=== PATIENT | male | born 1980 | race Two or more races ===

== ENCOUNTER 2020-09-25 07:49 | Day surgery (SDC) | payer BC ==
[~2020-09-25] VITALS: Ht 172.7 cm; Wt 86.2 kg
[~2020-09-25 07:49] MED LIST: LISI20TA28 PO
[2020-09-25] MEDS ORDERED: ceFAZolin 1GM/50ML 100 ML IV ONE (08:39)
[2020-09-25] MEDS ORDERED: EPINEPHrine HCL 1 MG/1 ML AMP ONE (09:00)
[2020-09-25] MEDS ORDERED: BUPIVACAINE HCL 50 ML ONE (09:01)
[2020-09-25] MEDS ORDERED: PHENYLEPHRINE HCL 10 MG/ML VL IV ONE (09:15)
[2020-09-25] MEDS ORDERED: SUCCINYLCHOLINE CHLORIDE 20 MG/ML 10ML VIAL IV ONE (09:15)
[2020-09-25] MEDS ORDERED: fentaNYL CITRATE 5 ML ONE ×2 (09:24→10:46)
[2020-09-25] MEDS ORDERED: MIDAZOLAM HCL 1MG/1ML-2 ML VIAL ONE (09:24)
[2020-09-25] MEDS ORDERED: fentaNYL CITRATE 100 MCG/2 ML VL ONE (09:24)
[2020-09-25] MEDS ORDERED: MEPERIDINE HCL (50 MG/ML) 1 ML VIAL ONE (09:24)
[2020-09-25] MEDS ORDERED: HYDROmorphone HCL 2 MG/ML VL IV PRN (10:00)
[2020-09-25] MEDS ORDERED: LABETALOL HCL 5 MG/ML 4ML SYRINGE IV PRN (10:00)
[2020-09-25] MEDS ORDERED: ONDANSETRON HCL 4 MG/2 ML VIAL IV PRN (10:00)
[2020-09-25] MEDS ORDERED: ePHEDrine SULFATE 50 MG/ML AMP IV PRN (10:00)
[2020-09-25] MEDS ORDERED: KETOROLAC TROMETH 30 MG/ML 1ML VIAL IV ONE (10:00)
[2020-09-25] MEDS ORDERED: MIDAZOLAM HCL 1MG/1ML-2 ML VIAL IV PRN (10:00)
[2020-09-25] MEDS ORDERED: MORPHINE SULFATE 4 MG/ML SYR/VIAL IV PRN (10:00)
[2020-09-25] MEDS ORDERED: PROPOFOL 10 MG/ML 20 ML IV ONE (10:09)
[2020-09-25] MEDS ORDERED: DexAMETHasone SOD PHOS 10MG/1ML VIAL INJ ONE (10:09)
[2020-09-25] MEDS ORDERED: NEOMYCIN-BACITRACIN-POLYM 15GM TOP OINT TOP ONE (10:29)
[2020-09-25 12:55] VITALS: BP 146/55
== END 2020-09-25 13:15 | disposition home or self-care (01) ==
LOC: SUR 07:49
PROVIDERS: ATTEND Orthopaedic Surgery Sports Medicine
DX: S83.511A Sprain of anterior cruciate ligament of right knee, initial encounter (principal); M23.211 Derangement of anterior horn of medial meniscus due to old tear or injury, right knee; I10 Essential (primary) hypertension; H52.209 Unspecified astigmatism, unspecified eye; Z68.28 Body mass index [BMI] 28.0-28.9, adult; Z20.822 Contact with and (suspected) exposure to COVID-19; X58.XXXA Exposure to other specified factors, initial encounter; Y93.89 Activity, other specified; Y92.89 Other specified places as the place of occurrence of the external cause; Y99.8 Other external cause status
CPT/HCPCS: 29882; 29888; C1713; C9803; J0171; J0330; J0690; J1100; J2175; J2250; J2370; J2405; J2704; J3010; J3490; U0003

== ENCOUNTER 2020-10-03 23:04 | Inpatient (IN) | payer BC ==
[~2020-10-03] VITALS: Ht 172.7 cm; Wt 93.5 kg
[2020-10-03] MEDS ORDERED: MORPHINE SULFATE 4 MG/ML SYR/VIAL IV ONE (23:45)
[2020-10-03] MEDS ORDERED: ONDANSETRON HCL 4 MG/2 ML VIAL IV ONE (23:45)
[2020-10-04 00:12] LABS: Basophils # (auto) 0 10 ^3/uL (0-0.2); Basophils % (auto) 0.4 % (0.0-2.0); Eosinophils # (auto) 0.1 10 ^3/uL (0-0.8); Eosinophils % (auto) 0.7 % (0.0-7.0); Hematocrit 35.9 % (41.0-53.0); Hemoglobin 12.3 g/dL (13.5-17.5); Lymphocytes # (auto) 1.1 10 ^3/uL (0.4-5.4); Mean Corpuscular Hemoglobin 29.3 pg (28.0-32.0); Mean Corpuscular Hgb Conc. 34.3 g/dL (32.0-36.0); Mean Corpuscular Volume 85.2 fL (80.0-100.0); Monocytes # (auto) 1.1 10 ^3/uL (0-1.3); Monocytes % (auto) 8.5 % (0.0-12.0); Neutrophils # (auto) 10.3 10 ^3/uL (1.6-8.6); Neutrophils % (auto) 81.4 % (37.0-80.0); Nucleated Red Blood Cells % 0.1 %; Red Blood Cells 4.21 10^6/uL (4.5-5.90); Red Cell Distribution Width 13.2 % (11.8-14.3); White Blood Cell 12.7 10^3/uL (4.4-10.8)
[2020-10-04 00:34] LABS: Albumin 3.1 g/dL (3.4-5.0); BUN/Creatinine Ratio 12.6; Calcium 8.6 mg/dL (8.5-10.1); Potassium 3.6 mmol/L (3.5-5.1)
[2020-10-04 00:37] LABS: Bilirubin, Total 0.6 mg/dL (0.2-1.0)
[2020-10-04] MEDS ORDERED: MORPHINE SULFATE 10 MG/ML INJ 1ML SDV IV ONE (03:30)
[2020-10-04] MEDS ORDERED: MORPHINE SULFATE 4 MG/ML SYR/VIAL IV ONE (03:30)
[2020-10-04] MEDS ORDERED: MORPHINE SULFATE 4 MG/ML SYR/VIAL ONE (03:39)
[2020-10-04] MEDS ORDERED: MORPHINE SULFATE INJECTION 2 MG/ML SYRG ONE (03:39)
[2020-10-04] MEDS ORDERED: HYDROcodone-ACET 10/325MG TAB PO PRN (06:15)
[2020-10-04] MEDS ORDERED: NITROGLYCERIN 0.4 MG SL TAB SL PRN (06:15)
[2020-10-04] MEDS ORDERED: MORPHINE SULFATE INJECTION 2 MG/ML SYRG IV PRN (06:15)
[2020-10-04] MEDS ORDERED: SODIUM CHLORIDE 0.9% 1,000 ML IV ONE (06:15)
[2020-10-04 08:00] VITALS: BP 119/75
[2020-10-04 09:08] VITALS: BP 119/75
[2020-10-04] MEDS: LISINOPRIL 20 MG TAB PO SCH (10:00)
[2020-10-04 10:59] LABS: INR 1.09 (0.9-1.15); Partial Thromboplastin Time 33.9 sec (23.0-31.2)
[2020-10-04] MEDS ORDERED: ceFAZolin 1GM/50ML 100 ML IV ONE (11:25)
[2020-10-04] MEDS ORDERED: BACITRACIN INJ 50000 UNIT VIAL ONE (12:01)
[2020-10-04] MEDS ORDERED: MORPHINE SULFATE 4 MG/ML SYR/VIAL IV PRN ×2 (12:15→13:30)
[2020-10-04] MEDS ORDERED: ONDANSETRON HCL 4 MG/2 ML VIAL IV PRN ×3 (12:15→13:30)
[2020-10-04] MEDS ORDERED: HYDROmorphone HCL 2 MG/ML VL IV PRN ×2 (12:15→13:30)
[2020-10-04] MEDS ORDERED: KETOROLAC TROMETH 30 MG/ML 1ML VIAL IV ONE ×2 (12:15→13:30)
[2020-10-04] MEDS ORDERED: LABETALOL HCL 5 MG/ML 4ML SYRINGE IV PRN ×2 (12:15→13:30)
[2020-10-04] MEDS ORDERED: MIDAZOLAM HCL 2MG/2ML 2ml VIAL (1mg/ml) IV PRN ×2 (12:15→13:30)
[2020-10-04] MEDS ORDERED: ePHEDrine SULFATE 50 MG/ML AMP IV PRN ×2 (12:15→13:30)
[2020-10-04] MEDS ORDERED: MEPERIDINE HCL (25 MG/ML) 1ML VIAL IV ONE (12:16)
[2020-10-04] MEDS ORDERED: PHENYLEPHRINE HCL 10 MG/ML VL IV ONE (12:16)
[2020-10-04] MEDS ORDERED: fentaNYL CITRATE 100 MCG/2 ML VL ONE (12:19)
[2020-10-04] MEDS ORDERED: MEPERIDINE HCL (25 MG/ML) 1ML VIAL ONE (12:19)
[2020-10-04] MEDS ORDERED: MIDAZOLAM HCL 2MG/2ML 2ml VIAL (1mg/ml) ONE (12:19)
[2020-10-04] MEDS: ceFAZolin 1GM/50ML 50 ML IV SCH ×2 (12:30→17:59)
[2020-10-04] MEDS ORDERED: HYDROcodone-ACET 5/325MG TAB PO PRN (12:30)
[2020-10-04] MEDS ORDERED: LACTATED RINGER'S 1,000 ML IV SCH (12:30)
[2020-10-04] MEDS ORDERED: DexAMETHasone SOD PHOS 10MG/1ML VIAL INJ ONE (12:34)
[2020-10-04] MEDS ORDERED: PROPOFOL 10 MG/ML 20 ML IV ONE (12:36)
[2020-10-04] MEDS ORDERED: BUPIVACAINE HCL 50 ML ONE (12:53)
[2020-10-04] MEDS: HYDROmorphone HCL 2 MG/ML VL IV PRN ×2 (15:51→20:39)
[2020-10-04 16:51] VITALS: BP 143/76
[2020-10-04] MEDS: KETOROLAC TROMETH 30 MG/ML 1ML VIAL IV SCH (17:55)
[2020-10-04 20:05] VITALS: BP 134/94
[2020-10-04 22:00] VITALS: BP 134/94
[2020-10-04] MEDS: DOCUSATE SOD 100 MG CAP PO SCH (22:00)
[2020-10-04] MEDS: ASPirin-EC 81 mg tab PO SCH (22:25)
[2020-10-05] MEDS: KETOROLAC TROMETH 30 MG/ML 1ML VIAL IV SCH ×4 (00:22→17:52)
[2020-10-05] MEDS: ceFAZolin 1GM/50ML 50 ML IV SCH (00:23)
[2020-10-05] MEDS: HYDROmorphone HCL 2 MG/ML VL IV PRN ×3 (04:28→20:23)
[2020-10-05 05:00] VITALS: BP 141/81
[2020-10-05] MEDS ORDERED: ACETAMINOPHEN 325 MG TAB PO PRN ×2 (06:15→14:00)
[2020-10-05] MEDS ORDERED: CLINDAMYCIN 900MG IV 50 ML IV SCH ×2 (06:30→09:00)
[2020-10-05] MEDS ORDERED: VANCOMYCIN PER PHARMACY 0 MG IV SCH (06:30)
[2020-10-05 06:32] LABS: Basophils # (auto) 0.1 10 ^3/uL (0-0.2); Basophils % (auto) 0.5 % (0.0-2.0); Eosinophils # (auto) 0 10 ^3/uL (0-0.8); Eosinophils % (auto) 0.1 % (0.0-7.0); Hematocrit 31.6 % (41.0-53.0); Hemoglobin 11.6 g/dL (13.5-17.5); Lymphocytes # (auto) 0.6 10 ^3/uL (0.4-5.4); Lymphocytes % (auto) 5.5 % (10.0-50.0); Mean Corpuscular Hemoglobin 30.6 pg (28.0-32.0); Mean Corpuscular Volume 83.8 fL (80.0-100.0); Monocytes # (auto) 0.6 10 ^3/uL (0-1.3); Monocytes % (auto) 4.9 % (0.0-12.0); Neutrophils # (auto) 10.1 10 ^3/uL (1.6-8.6); Red Blood Cells 3.78 10^6/uL (4.5-5.90); Red Cell Distribution Width 13.3 % (11.8-14.3); White Blood Cell 11.4 10^3/uL (4.4-10.8)
[2020-10-05 06:42] LABS: Calcium 8.5 mg/dL (8.5-10.1); Potassium 3.8 mmol/L (3.5-5.1)
[2020-10-05 06:44] LABS: BUN/Creatinine Ratio 19.3
[2020-10-05 06:52] LABS: Mean Corpuscular Hgb Conc. 36.5 g/dL (32.0-36.0)
[2020-10-05] MEDS ORDERED: VANCOMYCIN 1GM/250ML 250 ML IV ONE (08:00)
[2020-10-05 09:00] VITALS: BP 119/80
[2020-10-05] MEDS ORDERED: cefTRIAXone 1GM/50ML D5W 50 ML IV SCH (09:00)
[2020-10-05] MEDS: LISINOPRIL 20 MG TAB PO SCH (09:26)
[2020-10-05] MEDS: ASPirin-EC 81 mg tab PO SCH ×2 (09:26→21:51)
[2020-10-05] MEDS: DOCUSATE SOD 100 MG CAP PO SCH ×2 (09:27→21:52)
[2020-10-05 13:00] VITALS: BP 144/72
[2020-10-05] MEDS ORDERED: PIPERACILLIN-TAZOB 3.375GM 100 ML IV SCH (13:00)
[2020-10-05] MEDS: PIPERACILLIN-TAZOB 3.375GM 100 ML IV SCH ×2 (13:29→20:00)
[2020-10-05 17:00] VITALS: BP 146/77
[2020-10-05] MEDS: VANCOMYCIN 1GM/250ML 250 ML IV SCH (17:53)
[2020-10-05 21:49] VITALS: BP 110/58
[2020-10-06] MEDS: KETOROLAC TROMETH 30 MG/ML 1ML VIAL IV SCH ×5 (00:36→23:56)
[2020-10-06] MEDS: PIPERACILLIN-TAZOB 3.375GM 100 ML IV SCH ×4 (01:56→20:24)
[2020-10-06 04:34] VITALS: BP 115/78
[2020-10-06] MEDS: VANCOMYCIN 1GM/250ML 250 ML IV SCH ×3 (05:02→23:55)
[2020-10-06 05:14] LABS: Basophils # (auto) 0 10 ^3/uL (0-0.2); Basophils % (auto) 1.1 % (0.0-2.0); Eosinophils # (auto) 0 10 ^3/uL (0-0.8); Eosinophils % (auto) 1.1 % (0.0-7.0); Hematocrit 32.9 % (41.0-53.0); Hemoglobin 11.8 g/dL (13.5-17.5); Lymphocytes # (auto) 0.6 10 ^3/uL (0.4-5.4); Lymphocytes % (auto) 14.5 % (10.0-50.0); Mean Corpuscular Hemoglobin 30.3 pg (28.0-32.0); Mean Corpuscular Hgb Conc. 35.9 g/dL (32.0-36.0); Mean Corpuscular Volume 84.5 fL (80.0-100.0); Monocytes # (auto) 0.4 10 ^3/uL (0-1.3); Monocytes % (auto) 10.3 % (0.0-12.0); Neutrophils # (auto) 3.2 10 ^3/uL (1.6-8.6); Nucleated Red Blood Cells % 0.1 %; Red Blood Cells 3.89 10^6/uL (4.5-5.90); Red Cell Distribution Width 13.5 % (11.8-14.3); White Blood Cell 4.3 10^3/uL (4.4-10.8)
[2020-10-06 05:48] LABS: Potassium 4.1 mmol/L (3.5-5.1)
[2020-10-06 05:50] LABS: BUN/Creatinine Ratio 14.8
[2020-10-06 09:00] VITALS: BP 123/76
[2020-10-06] MEDS: ASPirin-EC 81 mg tab PO SCH ×2 (09:44→22:09)
[2020-10-06] MEDS: LISINOPRIL 20 MG TAB PO SCH (09:45)
[2020-10-06] MEDS: HYDROmorphone HCL 2 MG/ML VL IV PRN ×4 (09:45→23:04)
[2020-10-06] MEDS: DOCUSATE SOD 100 MG CAP PO SCH ×2 (09:50→22:09)
[2020-10-06 11:34] LABS: Hematocrit 32.5 % (41.0-53.0); Hemoglobin 11.6 g/dL (13.5-17.5)
[2020-10-06 12:51] VITALS: BP 146/83
[2020-10-06 17:00] VITALS: BP 137/71
[2020-10-06 22:00] VITALS: BP 141/68
[2020-10-07] MEDS: PIPERACILLIN-TAZOB 3.375GM 100 ML IV SCH (02:02)
[2020-10-07 05:00] VITALS: BP 124/71
[2020-10-07] MEDS: KETOROLAC TROMETH 30 MG/ML 1ML VIAL IV SCH (05:48)
[2020-10-07 05:56] LABS: Basophils # (auto) 0.1 10 ^3/uL (0-0.2); Basophils % (auto) 1.1 % (0.0-2.0); Eosinophils # (auto) 0.3 10 ^3/uL (0-0.8); Eosinophils % (auto) 5.5 % (0.0-7.0); Hematocrit 32.7 % (41.0-53.0); Hemoglobin 11.8 g/dL (13.5-17.5); Lymphocytes # (auto) 1.2 10 ^3/uL (0.4-5.4); Lymphocytes % (auto) 20.5 % (10.0-50.0); Mean Corpuscular Hemoglobin 30.6 pg (28.0-32.0); Mean Corpuscular Hgb Conc. 36.2 g/dL (32.0-36.0); Mean Corpuscular Volume 84.5 fL (80.0-100.0); Monocytes # (auto) 0.8 10 ^3/uL (0-1.3); Monocytes % (auto) 12.6 % (0.0-12.0); Neutrophils # (auto) 3.6 10 ^3/uL (1.6-8.6); Neutrophils % (auto) 60.3 % (37.0-80.0); Red Blood Cells 3.87 10^6/uL (4.5-5.90); Red Cell Distribution Width 13.4 % (11.8-14.3)
[2020-10-07 06:12] LABS: Potassium 4.3 mmol/L (3.5-5.1)
[2020-10-07 06:26] LABS: BUN/Creatinine Ratio 14.9; Calcium 8.5 mg/dL (8.5-10.1)
[2020-10-07 07:29] VITALS: BP 123/76
== END 2020-10-07 08:51 | disposition home health service (06) | DRG 908 ==
LOC: ER 23:04 → OVERFLOW 10-04 06:10 → CENTRAL 10-04 07:42
PROVIDERS: ADMIT Orthopaedic Surgery Sports Medicine; ATTEND Orthopaedic Surgery Sports Medicine
PROC: 0Y9F3ZZ Drainage of Right Knee Region, Percutaneous Approach (ICD-10-PCS; principal; 2020-10-04 12:23)
PROC: 0SBC4ZZ Excision of Right Knee Joint, Percutaneous Endoscopic Approach (ICD-10-PCS; 2020-10-04 12:23)
DX: M96.840 Postprocedural hematoma of a musculoskeletal structure following a musculoskeletal system procedure (principal); L03.115 Cellulitis of right lower limb; E44.1 Mild protein-calorie malnutrition; Z20.822 Contact with and (suspected) exposure to COVID-19; F31.9 Bipolar disorder, unspecified; Z83.3 Family history of diabetes mellitus; Z79.899 Other long term (current) drug therapy; Z79.891 Long term (current) use of opiate analgesic; Z79.01 Long term (current) use of anticoagulants; M25.461 Effusion, right knee
CPT/HCPCS: 36415; 73560; 73590; 80048; 80053; 80202; 82565; 85014; 85018; 85025; 85610; 85730; 86850; 86900; 86901; 87040; 87070; 87075; 87081; 87205; 87426; 93971; 96361; 96374; 96375; 97110; 97116; 97163; 97530; G0378; J0690; J0696; J1100; J1885; J2250; J2405; J2543; J2704; J3490

== ENCOUNTER → 2020-10-08 00:31 | Emergency (ER) | payer BC ==
[~2020-10-08] VITALS: Ht 172.7 cm; Wt 86.2 kg
[2020-10-08 00:45] VITALS: BP 145/91
== END | disposition left against medical advice (07) ==
LOC: ER 00:31
DX: M79.605 Pain in left leg (principal); Z53.21 Procedure and treatment not carried out due to patient leaving prior to being seen by health care provider

== ENCOUNTER 2020-12-01 02:05 | Emergency (ER) | payer BC ==
[~2020-12-01] VITALS: Ht 172.7 cm; Wt 83.9 kg
[2020-12-01 03:22] VITALS: BP 180/100
[2020-12-01] MEDS ORDERED: KETOROLAC TROMETH 60MG/2ML VIAL IM ONE (05:45)
== END 2020-12-01 06:37 | disposition home or self-care (01) ==
LOC: ER 02:05
DX: S83.91XA Sprain of unspecified site of right knee, initial encounter (principal); F17.210 Nicotine dependence, cigarettes, uncomplicated; Z79.899 Other long term (current) drug therapy; X58.XXXA Exposure to other specified factors, initial encounter; Y93.89 Activity, other specified; Y92.89 Other specified places as the place of occurrence of the external cause; Y99.8 Other external cause status
CPT/HCPCS: 73562; 96372; 99283; J1885

== ENCOUNTER 2020-12-02 23:29 | Emergency (ER) | payer BC ==
[~2020-12-02] VITALS: Ht 172.7 cm; Wt 83.5 kg
[2020-12-03] MEDS ORDERED: methylPREDNISolone SOD SUCC 125 MG/2 ML VL IM ONE (02:00)
[2020-12-03] MEDS ORDERED: KETOROLAC TROMETH 60MG/2ML VIAL IM ONE (02:00)
[2020-12-03 03:26] VITALS: BP 138/95
== END 2020-12-03 03:32 | disposition home or self-care (01) ==
LOC: ER 23:29
DX: M25.561 Pain in right knee (principal); R22.41 Localized swelling, mass and lump, right lower limb; F17.210 Nicotine dependence, cigarettes, uncomplicated; Z79.899 Other long term (current) drug therapy
CPT/HCPCS: 96372; 99284; J1885; J2930

== ENCOUNTER 2021-02-18 04:30 | Emergency (ER) | payer BC ==
[2021-02-18 06:48] VITALS: BP 171/97
== END 2021-02-18 07:10 | disposition left against medical advice (07) ==
LOC: ER 04:30
DX: M25.562 Pain in left knee (principal); M25.561 Pain in right knee; Z53.21 Procedure and treatment not carried out due to patient leaving prior to being seen by health care provider
CPT/HCPCS: 73562

== ENCOUNTER 2021-02-18 19:48 | Emergency (ER) | payer BC ==
[~2021-02-18] VITALS: Ht 172.7 cm; Wt 87.1 kg
[2021-02-18 23:00] VITALS: BP 169/111
[2021-02-18] MEDS ORDERED: KETOROLAC TROMETH 60MG/2ML VIAL IM ONE (23:45)
[2021-02-18] MEDS ORDERED: methylPREDNISolone SOD SUCC 125 MG/2 ML VL IM ONE (23:45)
== END 2021-02-19 01:24 | disposition home or self-care (01) ==
LOC: ER 19:50
DX: S83.8X1A Sprain of other specified parts of right knee, initial encounter (principal); F17.210 Nicotine dependence, cigarettes, uncomplicated; Z59.00 Homelessness unspecified; X58.XXXA Exposure to other specified factors, initial encounter; Y93.89 Activity, other specified; Y92.89 Other specified places as the place of occurrence of the external cause; Y99.8 Other external cause status
CPT/HCPCS: 29505; 96372; 99284; J1885; J2930

== ENCOUNTER 2024-08-25 03:02 | Inpatient (IN) | payer BC ==
[~2024-08-25] VITALS: Ht 172.7 cm; Wt 96.0 kg
[2024-08-25] VITALS (7 sets, daily range): BP systolic 132–151; BP diastolic 82–94; PULSE 61–77; RESP 12–20; TEMP 98.1–98.2; O2SAT 94–98
[~2024-08-25 03:02] MED LIST changes: -LISI20TA28 PO; +LISI20TA56 PO
--- NOTE | 2024-08-25 03:54 | ED.PDOC ---
GI ASSESSMENT HPI Comments 43 year old male presents to the ED with a chief complaint of blood in stool onset 08/16/24. Patient states he has been experiencing blood in stool with blood clots for the past 2 weeks, blood gets light but does not resolve. Saw PCP yesterday, was sent for lab work. Patient woke up this morning and noticed bleeding worsen as well as periumbilical pain radiates to back, came to ED. Denies chest pain, shortness of breath, diarrhea, nausea, vomiting, dysuria, hematuria. No other symptoms or modifying factors present at this time. Chief Complaint: GI Bleed Time Seen by MD: 03:41 Primary Care Provider: ALEXANDER De La Rosa Notes: Medications, Allergies Allergies: Coded Allergies: NO KNOWN ALLERGIES (Unverified , 09/20/20) Home Meds Reported Medications Lisinopril (Lisinopril) 20 Mg Tab, 20 MG PO DAILY, TAB 09/20/20 Information Source: Patient Mode of Arrival: Ambulatory Timing: Weeks Duration: Since onset Prehospital treatment: None Quality: Sharp Vomitus: None Stool: Blood Streaked Severity: Moderate Recent: None Recent Hx of: None Pain Location: Periumbilical Modifying Factors: Nothing Associated sign and symptoms: Abdominal Pain, Blood in Stool Past Medical History Past Medical History (Other): ADHD Family History Family History: Reviewed,noncontributory to illness, No family hx of Cancer, No family hx of Heart fatuma, No family hx of HTN, No family hx ofKidney fatuma, No family hx of Liver fatuma, No family hx of Lung fatuma, No family hx of Stroke, Family hx of DM Social History Smoker: Cigarettes, Less Than 1 Pack/Day Alcohol: Denies ETOH Use Drugs: Denies Drug Use Lives In: Home Constitutional: denies: chills, diaphoresis, fatigue, fever, malaise, sweats, weakness, others EENTM: denies: blurred vision, double vision, ear bleeding, ear discharge, ear drainage, ear pain, ear ringing, eye pain, eye redness, hearing loss, mouth pain, mouth swelling, nasal discharge, nose bleeding, nose congestion, nose pain, photophobia, tearing, throat pain, throat swelling, voice changes, others Respiratory: denies: cough, hemoptysis, orthopnea, SOB at rest, shortness of breath, SOB with excertion, stridor, wheezing, others Cardiovascular: denies: chest pain, dizzy spells, diaphoresis, Dyspnea on exertion, edema, irregular heart beat, left arm pain, lightheadedness, palpitations, PND, syncope, others Gastrointestinal: reports: abdominal pain, rectal bleeding; denies: abdomen distended, blood streaked bowels, constipated, diarrhea, dysphagia, difficulty swallowing, hematemesis, melena, nausea, poor appetite, poor fluid intake, rectal pain, vomiting, others Genitourinary: denies: burning, dysuria, flank pain, frequency, hematuria, incontinence, penile discharge, penile sore, pain, testicle pain, testicle swelling, urgency, others Neurological: denies: dizziness, fainting, headache, left sided numbness, left sided weakness, numbness, paresthesia, pre-existing deficit, right sided numbness, right sided weakness, seizure, speech problems, tingling, tremors, weakness, others Musculoskeletal: reports: back pain; denies: gout, joint pain, joint swelling, muscle pain, muscle stiffness, neck pain, others Integumetry: denies: bruises, change in color, change in hair/nails, dryness, laceration, lesions, lumps, rash, wounds, others Allergic/Immunocompromised: denies: Difficulty Healing, Frequent Infections, Hives, Itching, others Hematologic/Lymphatic: denies: anemia, blood clots, easy bleeding, easy bruising, swollen glands, others Endocrine: denies: excessive hunger, excessive sweating, excessive thirst, excessive urination, flushing, intolerance to cold, intolerance to heat, unexplained weight gain, unexplained weight loss, others Psychiatric: denies: anxiety, bipolar disorder, depression, hopeless, panic disorder, schizophrenia, sleepless, suicidal, others All Other Systems: Reviewed and Negative Physical Exam General Appearance: No Apparent Distress, Normal HEENT: Normal ENT Inspection, Pharynx Normal, TMs Normal Neck: Full Range of Motion, Non-Tender, Normal, Normal Inspection Respiratory: Chest Non-Tender, Lungs Clear, No Accessory Muscle Use, No Respiratory Distress, Normal Breath Sounds Cardiovascular: No Edema, No JVD, No Murmur, No Gallop, Normal Peripheral Pulses, Regular Rate/Rhythm Breast Exam: Deferred Gastrointestinal: No Organomegaly, Non Tender, No Pulsatile Mass, Normal Bowel Sounds, Soft Genitalia: Deferred Pelvic: Deferred Rectal: Deferred Extremities: No calf tenderness, Normal capillary refill, Normal inspection, Normal range of motion, Non-tender, No pedal edema Musculoskeletal : Apperance: Normal Neurologic: Alert, 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 Was a procedure done?: No GI differential Dx Differential Diagnosis: Bowel Obstruction, Gastroenteritis, GI hemorrhage, Urinary Obstruction, Electrolyte Imbalance X-Ray, Labs, Meds, VS Vital Signs Date Time Temp Pulse Resp B/P (MAP) Pulse Ox O2 Delivery O2 Flow Rate FiO2 08/25/24 04:00 98.4 69 14 149/92 (111) 97 98.4 08/25/24 04:00 69 14 97 Room Air* 0 21 08/25/24 03:18 98.0 78 16 158/113 (128) 97 98.0 Lab Test 08/25/24 03:54 Range/Units White Blood Count 11.1 H 4.4-10.8 10^3/uL Red Blood Count 5.68 4.5-5.90 10^6/uL Hemoglobin 16.9 13.5-17.5 g/dL Hematocrit 49.9 41.0-53.0 % Mean Corpuscular Volume 87.9 80.0-100.0 fL Mean Corpuscular Hemoglobin 29.8 28.0-32.0 pg Mean Corpuscular Hemoglobin Concent 33.9 32.0-36.0 g/dL Red Cell Distribution Width 13.2 11.8-14.3 % Platelet Count 225 140-450 10^3/uL Mean Platelet Volume 8.4 6.9-10.8 fL Neutrophils (%) (Auto) 73.7 37.0-80.0 % Lymphocytes (%) (Auto) 12.4 10.0-50.0 % Monocytes (%) (Auto) 10.8 0.0-12.0 % Eosinophils (%) (Auto) 2.6 0.0-7.0 % Basophils (%) (Auto) 0.5 0.0-2.0 % Neutrophils # (Auto) 8.1 1.6-8.6 10 ^3/uL Lymphocytes # (Auto) 1.4 0.4-5.4 10 ^3/uL Monocytes # (Auto) 1.2 0-1.3 10 ^3/uL Eosinophils # (Auto) 0.3 0-0.8 10 ^3/uL Basophils # (Auto) 0.1 0-0.2 10 ^3/uL Nucleated Red Blood Cells 0.0 % Prothrombin Time 10.5 9.3-11.8 sec Prothrombin Time INR 0.99 0.9-1.15 Activated Partial Thromboplast Time 29.6 24.5-34.5 SEC Sodium Level 139 136-145 mmol/L Potassium Level 3.8 3.5-5.1 mmol/L Chloride Level 103 98-107 mmol/L Carbon Dioxide Level 31 20-31 mmol/L Anion Gap 5 5-15 Blood Urea Nitrogen 11 9-23 mg/dL Creatinine 0.96 0.700-1.30 mg/dL Glomerular Filtration Rate Calc 101 >90 mL/min BUN/Creatinine Ratio 11.5 10.0-20.0 Serum Glucose 107 H 74-106 mg/dL Lactic Acid Level 0.5 0.4-2.0 mmol/L Calcium Level 9.1 8.7-10.4 mg/dL Current Medications Medications (Trade) Dose Ordered Sig/Qing Route Start Time Stop Time Status Last Admin Sodium Chloride 1,000 ml @ 1,000 mls/hr Q1H ONCE IV 08/25/24 04:00 08/25/24 04:59 DC 08/25/24 04:18 Ondansetron HCl (Zofran) 4 mg ONCE ONCE IV 08/25/24 04:00 08/25/24 04:01 DC 08/25/24 04:18 Pantoprazole Sodium (Protonix) 40 mg ONCE ONCE IV 08/25/24 04:00 08/25/24 04:01 DC 08/25/24 04:18 Time of 1ST Reevaluation: 04:11 Reevaluation 1ST: Unchanged Patient Education/Counseling: Diagnosis, Treatment, Prognosis Family Education/Counseling: No Family Present Departure 1 Departure Time of Disposition: 05:36 (Patient presented with abdominal pain that was concerning for possible appendicits, gastritis, cholecystitis, colitis, gastroenteritis, sbo, or orther possible surgical emergency. Data: 1. I ordered and reviewed the result of at least 3 labs including a CBC, BMP, and Urinalysis. 2. I independently interpreted the following tests: CT Abdoment and Pelvis is concerning for benign abdomen .Risk:This patient has a high risk of morbidity due to further diagnostic testing or treatment and may suffer from an acute abdominal process disorder. Workup reveals concern for GI bleed and patient should be admitted for further workup. and possible expert consultation. ) Impression: Primary Impression: Bright red blood per rectum Additional Impression: Acute abdominal pain Disposition: ADMITTED INPATIENT Admit to: Med Surg Condition: Serious Critical Care Note Critical Care Time?: Yes Critical care comment: Intractable abdominal pain Authorized and Performed by: Vanessa Meyers MD Total critical care time: Approximately 38 minutes Due to a high probability of clinically significant, life threatening deterioration, the patient required my highest level of preparedness to intervene emergently and I personally spent this critical care time directly and personally managing the patient. This critical care time included obtaining a history; examining the patient; pulse oximetry; ordering and review of studies; arranging urgent treatment with development of a management plan; evaluation of patient's response to treatment; frequent reassessment; and, discussions with other providers. This critical care time was performed to assess and manage the high probability of imminent, life-threatening deterioration that could result in multi-organ failure. It was exclusive of separately billable procedures and treating other patients and teaching time. Please see my other sections and the rest of the note for further information on patient assessment and treatment. Stability Stability form required: No I personally scribed for VANESSA MEYERS MD ([email or web address]) on 08/25/24 at 03:54. Electronically submitted by Radha Godfrey ([email or web address]). VANESSA MEYERS MD August 25, 2024 03:54
[2024-08-25 04:17] LABS: Basophils # (auto) 0.1 10 ^3/uL (0-0.2); Basophils % (auto) 0.5 % (0.0-2.0); Eosinophils # (auto) 0.3 10 ^3/uL (0-0.8); Eosinophils % (auto) 2.6 % (0.0-7.0); Hematocrit 49.9 % (41.0-53.0); Hemoglobin 16.9 g/dL (13.5-17.5); Lymphocytes # (auto) 1.4 10 ^3/uL (0.4-5.4); Lymphocytes % (auto) 12.4 % (10.0-50.0); Mean Corpuscular Hemoglobin 29.8 pg (28.0-32.0); Mean Corpuscular Hgb Conc. 33.9 g/dL (32.0-36.0); Mean Corpuscular Volume 87.9 fL (80.0-100.0); Monocytes # (auto) 1.2 10 ^3/uL (0-1.3); Monocytes % (auto) 10.8 % (0.0-12.0); Neutrophils # (auto) 8.1 10 ^3/uL (1.6-8.6); Neutrophils % (auto) 73.7 % (37.0-80.0); Platelet Count (auto) 225 10^3/uL (140-450); Red Blood Cells 5.68 10^6/uL (4.5-5.90); Red Cell Distribution Width 13.2 % (11.8-14.3); White Blood Cell 11.1 10^3/uL (4.4-10.8)
[2024-08-25] MEDS: ONDANSETRON HCL 4 MG/2 ML VIAL IV ONE (04:18)
[2024-08-25] MEDS: SODIUM CHLORIDE 0.9% 1,000 ML IV ONE (04:18)
[2024-08-25] MEDS: PANTOPRAZOLE 40 MG/10 ML VIAL INJ IV ONE ×2 (04:18→06:30)
[2024-08-25 04:23] LABS: Chloride 103 mmol/L (98-107); Potassium 3.8 mmol/L (3.5-5.1); Sodium 139 mmol/L (136-145)
[2024-08-25 04:24] LABS: Anion Gap 5 (5-15)
[2024-08-25 04:25] LABS: Calcium 9.1 mg/dL (8.7-10.4)
[2024-08-25 04:30] LABS: BUN/Creatinine Ratio 11.5 (10.0-20.0); Blood Urea Nitrogen 11 mg/dL (9-23)
[2024-08-25 04:37] LABS: INR 0.99 (0.9-1.15); Partial Thromboplastin Time 29.6 SEC (24.5-34.5); Prothrombin Time 10.5 sec (9.3-11.8)
[2024-08-25 04:48] LABS: Carbon Dioxide 31 mmol/L (20-31); Glucose 107 mg/dL (74-106)
[2024-08-25] MEDS: IOHEXOL 300 MG/ML 100ML BOTTLE IJ ONE (05:03)
--- NOTE | 2024-08-25 05:32 | DVH ---
Exam: CT CT AB PEL WITH IV CON ONLY History: brbpr Comparison Study: None available at time of dictation. Technique: Multidetector spiral CT of the abdomen was performed from lung bases to pubic symphysis. A xial imaging was performed with intravenous contrast following the uneventful administration of 100 m l Omnipaque 300. Coronal and sagittal multiplanar reformats were obtained from the axial data set by the technologist. Radiation Dose : 1. Abdomen/Pelvis: CTDIvol 14.6 mGy, DLP 883.8 mGy*cm. Findings: Lung Bases: Lung bases are clear. Visualized portions of the heart and pericardium are unremarkable. Liver: The liver is normal in size. No focal lesions. Gallbladder and Biliary Tree: The gallbladder is unremarkable. No intrahepatic or extrahepatic bilia ry ductal dilatation. Spleen: Unremarkable Pancreas: The pancreas enhances normally and there are no focal lesions. The main pancreatic duct is not dilated Adrenal Glands: Unremarkable Kidneys: Ill-defined low attenuation in the upper pole of the left kidney measuring approximately 4.4 cm. No hydronephrosis. Bilateral renal cysts. No intrarenal calculi. GI tract: The stomach is grossly normal in appearance. No evidence of small bowel wall thickening or abnormal dilatation to suggest bowel obstruction. Sigmoid colon diverticulosis without acute diverti culitis. The appendix is not visualized, however no inflammatory changes in the right lower quadrant to suggest acute appendicitis. Peritoneum/mesentery/retroperitoneum. No evidence of free intraperitoneal air. No ascites. No evidenc e of suspicious lymphadenopathy. Abdominal Wall: Unremarkable. Vasculature: Abdominal aorta and main branches are unremarkable. Normal vascular enhancement. No acti ve contrast extravasation. Urinary Bladder: Grossly unremarkable for degree of distention. Pelvic Organs: Unremarkable Musculoskeletal: No aggressive focal bony lesions, acute fractures or dislocation. IMPRESSION: 1. No findings to suggest active gastrointestinal bleed. Given patient's history, colonoscopy shoul d be considered for further evaluation. 2. Sigmoid diverticulosis without acute diverticulitis. 3. Low attenuation in the upper pole of the left kidney. Pyelonephritis not excluded. Correlation urinalysis inflammatory laboratory markers recommended.
[2024-08-25] MEDS: MORPHINE SULFATE 4 MG/ML SYR/VIAL IV ONE (05:45)
[2024-08-25] MEDS ORDERED: ACETAMINOPHEN 325 MG TAB PO PRN (05:45)
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
[2024-08-25 06:22] LABS: Basophils # (auto) 0.1 10 ^3/uL (0-0.2); Basophils % (auto) 0.5 % (0.0-2.0); Eosinophils # (auto) 0.2 10 ^3/uL (0-0.8); Eosinophils % (auto) 1.8 % (0.0-7.0); Hemoglobin 16.3 g/dL (13.5-17.5); Lymphocytes # (auto) 1.3 10 ^3/uL (0.4-5.4); Lymphocytes % (auto) 11.7 % (10.0-50.0); Mean Corpuscular Hemoglobin 29.6 pg (28.0-32.0); Mean Corpuscular Volume 87.1 fL (80.0-100.0); Monocytes % (auto) 8.4 % (0.0-12.0); Neutrophils # (auto) 8.9 10 ^3/uL (1.6-8.6); Neutrophils % (auto) 77.6 % (37.0-80.0); Nucleated Red Blood Cells % 0.1 %; Platelet Count (auto) 229 10^3/uL (140-450); Red Blood Cells 5.52 10^6/uL (4.5-5.90); Red Cell Distribution Width 13.3 % (11.8-14.3); White Blood Cell 11.5 10^3/uL (4.4-10.8)
[2024-08-25] MEDS: SODIUM CHLORIDE 0.9% 1,000 ML IV SCH (06:30)
[2024-08-25 06:46] LABS: Alanine Aminotransferase 47 U/L (7-40); Albumin 4.1 g/dL (3.2-4.8); Alkaline Phosphatase 68 U/L (46-116); Anion Gap 8 (5-15); Aspartate Aminotransferase 45 U/L (13-40); BUN/Creatinine Ratio 12.9 (10.0-20.0); Blood Urea Nitrogen 11 mg/dL (9-23); Carbon Dioxide 25 mmol/L (20-31); Chloride 105 mmol/L (98-107); Cholesterol 122 mg/dL (< 200); Glucose 110 mg/dL (74-106); HDL Cholesterol 46 mg/dL (40-59); LDL Cholesterol 66 mg/dL (< 100); Magnesium 1.9 mg/dL (1.6-2.6); Phosphorus 2.5 mg/dL (2.4-5.1); Potassium 4.1 mmol/L (3.5-5.1); Sodium 138 mmol/L (136-145); Total Protein 6.5 g/dL (5.7-8.2); Triglycerides 68 mg/dL (< 150)
[2024-08-25 06:47] LABS: Bilirubin, Total 0.4 mg/dL (0.2-1.0)
[2024-08-25 06:58] LABS: Lipase 45 U/L (12-53)
[2024-08-25 07:33] LABS: Urine Bacteria None Seen /hpf (None Seen)
[2024-08-25 08:07] LABS: Urine Blood Negative /uL (Negative); Urine Clarity Clear (Clear); Urine Color Light-Yellow (Yellow); Urine Protein, UAD Negative (Negative); Urine Specific Gravity 1.036 (1.001-1.035); Urine Squamous Epithelial Cell None Seen /hpf (<5); Urine Urobilinogen Normal (Negative)
[2024-08-25 08:09] LABS: Amphetamine Screen, Urine Neg (NEGATIVE)
[2024-08-25 08:10] LABS: Barbiturate Scree,Urine Neg (NEGATIVE); Benzodiazephine Screen, Urine Neg (NEGATIVE); Cocaine Screen, Urine Neg (NEGATIVE); Opiate Scree,Urine Neg (NEGATIVE)
[2024-08-25 08:12] LABS: Cannabinoid Screen, Urine Pos (NEGATIVE); Phencyclidine Screen, Urine Neg (NEGATIVE)
[2024-08-25 08:19] LABS: Urine WBC < 1 /HPF (0-3)
[2024-08-25] MEDS: MORPHINE SULFATE INJ 2 MG/ml SYRG IV PRN (09:33)
--- NOTE | 2024-08-25 11:31 | DVHPNRES ---
Progress Note Date Seen: August 25, 2024 Resident Creating Document: SOHAM BROWN RESIDENT Medical Necessity Reason Pt with a Central, PICC or Fol: No Subjective Review of Systems Lei Porter is a 43-year-old male patient with PMH of Hypertension, bipolar disorder, anxiety, PTSD, ADHD, GERD. Multiple traumatic injuries during contact sports, who presents to the ED with chief complaint of abundant episode of hematochezia which happened on 08/24/2021 at 5:00 p.m. associated with severe dull epigastric abdominal pain intensity 8/10. Per patient he started complaining of hematochezia on 08/16/2024, went to his PCP who ordered complementary workup, but due to severe episode prompted his visit to the ED. denies palpitation, syncope, chest pain, dyspnea, nausea, vomiting, diarrhea, constipation, rectal pain, dysuria, hematuria, sick contacts, unintentional weight loss, recent travel and motor or sensory deficits. Patient was seen and examined on the bedside. He is alert oriented x3. Complain of severe epigastric pain and also flank pain. No other active complaint ROS: Constitutional: No: Fever, Chills, Sweats, Weakness, Malaise, Other Eyes: No: Pain, Vision change, Conjunctivae inflammation, Eyelid inflammation, Other, Redness ENT: No: Ear pain, Ear discharge, Nose pain, Nose discharge, Nose congestion, Mouth pain, Mouth swelling, Throat pain, Throat swelling, Other Respiratory: Shortness of breath, improving No: Cough, Dry,Wheezing, Hemoptysis, Pleuritic Pain, Sputum, Wheezing, Other Cardiovascular: No: Chest Pain, Palpitations, Orthopnea, Paroxysmal Noc. Dyspnea, Edema, Lt Headedness, Other Gastrointestinal: Nausea, Abdominal Pain, No vomiting, Diarrhea, Constipation, Melena, Hematochezia, Other Musculoskeletal: No: other, neck pain, shoulder pain, arm pain, back pain, hand pain, leg pain, foot pain Neurological:; No: Weakness, Numbness, Incoordination, Change in speech, Confusion, Seizures Objective vital signs Vital Sign Date Time Temp Pulse Resp B/P (MAP) Pulse Ox O2 Delivery O2 Flow Rate FiO2 08/25/24 10:23 77 16 145/91 08/25/24 09:13 95 08/25/24 07:17 98.8 98.8 08/25/24 07:17 Room Air* 0 21 Total Intake and Output 08/24/24 08/24/24 08/25/24 15:00 23:00 07:00 Intake Total 1000 ml Balance 1000 ml medications Current Medications Medications Dose Ordered Sig/Qing Route Start Time Stop Time Status Last Admin Dose Admin Acetaminophen 650 mg Q6HP PRN PO 08/25/24 05:45 Morphine Sulfate 2 mg Q4HPRN PRN IV 08/25/24 05:45 08/25/24 10:23 2 MG Sodium Chloride 1,000 ml @ 100 mls/hr Q10H IV 08/25/24 05:45 08/25/24 06:30 100 MLS/HR Pantoprazole Sodium 40 mg BID IV 08/25/24 22:00 Ceftriaxone Sodium 50 ml @ 100 mls/hr DAILY@09 IV 08/26/24 09:00 UNV Examination Physical examination: General Appearance: Alert, Oriented X3, Cooperative, No acute distress HEENT: Atraumatic, PERRLA, EOMI, Mucous membrane moist/pink Respiratory: Clear to auscultation, Normal air movement Cardiovascular: Regular rate, Normal S1, Normal S2, No murmurs, no chest wall tenderness Abdominal: Lt CVA tenderness present, Normal bowel sounds, Soft, No hepatosplenomegaly, No masses Extremities: No clubbing, No cyanosis, No edema, Normal pulses, No tenderness/swelling Skin: No rashes, No breakdown, No significant lesion Neuro: Normal gait, Normal speech, Strength at 5/5 X4 ext, Normal tone, Sensation intact, Cranial nerves 3-12 NL, Reflexes 2+ Psych/Mental Status: Mental status NL, Mood NL laboratory and microbiology Laboratory Tests 08/25/24 05:58 Test 08/25/24 05:58 Range/Units Serum Glucose 110 H 74-106 mg/dL Labs and/or images reviewed: Labs reviewed by me, Image(s) reviewed by me Problem List/Assessment/Plan Problem List/Assessment/Plan Assessment and plan: # Possible Lower GI bleeding # Abdominal pain # History of GERD - NPO - IV Protonix 40 mg bid - IV N/S @100ml/hr - IV Protonix 40 mg b.i.d. - Pending FOBT - GI on board and scheduled for colonoscopy tomorrow on 08/26/2024 - Pain management # Suspected sepsis with leukocytosis due to possible pyelonephritis - CT abdomen pelvis demonstrated Low attenuation in the upper pole of the left kidney. Pyelonephritis not excluded. - U/A, CRP and ESR are normal - IV ceftriaxone 1 gm daily. # Left hepatic lobe lesion with transaminitis - U/A showed Hepatic steatosis. A 4.4 cm echogenic lesion in the left hepatic lobe may represent a hemangioma - Coagulation studies normal, pending hepatitis panel. # Essential hypertension - lisinopril 20 mg p.o. daily # History of PTSD, bipolar disorder, ADHD, anxiety - Continue home meds # Tobacco use disorder - Counseled on tobacco use cessation for 16 minutes Goals of care discussed with the patient for 20 minutes; full code Plan discussed with Dr. Tenorio Plan discussed with: Patient, Other (RN) My Orders My Orders Orders - SOHAM BROWN RESIDENT Procedure Category Date Status Time Ceftriaxone 1gm/50ml PHA 08/26/24 Logged D5w (Rocephin) 09:00 Ceftriaxone 1gm/50ml PHA 08/25/24 Logged D5w (Rocephin) 11:30 C-Reactive Protein LAB 08/25/24 Transmitted 11:26 Erythrocyte LAB 08/25/24 Transmitted Sedimentation Rate 11:26 Comprehensive LAB 08/25/24 Transmitted Hepatitis Panel 11:26 Abdomen Complete US 08/25/24 Logged Sonogram 11:26 Lisinopril Tablet PHA 08/26/24 Verified (Zestril Tablet) 10:00 Addendum Addendum Addendum I was physically present for the arellano portions of the service provided to patient by THE RESIDENT. I have reviewed the documentation, discussed the case with resident and agree with the resident's documentation except as noted. Also the patient's clinical case was discussed with the patient's nurse. This medical document was created using an electronic medical record system with computerized dictation system. Although this document has been carefully reviewed, there might still be some phonetic and typographical errors. These areas are purely typographical due to imperfections of the software programs, and do not reflect any compromise in the patient's medical care. Late signature. Date of Service: August 25, 2024 Billing Provider: BERKLEY TENORIO MD Common Visit Codes: 63060-[id number] INP/OBS CARE(HIGH) Secondary Visit Codes: 59139-QCLSA CHNG SMOKING >10MIN (16 minutes), 76415- ADVANCED CARE PLAN 30 MINUTES (20 minutes) SOHAM BROWN RESIDENT August 25, 2024 11:31 BERKLEY TENORIO MD August 26, 2024 10:33
[2024-08-25] MEDS ORDERED: PROP1TAB51 PO (12:27)
[2024-08-25] MEDS ORDERED: ALPR0.25 PO (12:27)
[2024-08-25] MEDS: cefTRIAXone 1GM/50ML D5W 50 ML IV ONE (12:35)
[2024-08-25 12:51] LABS: Erythrocyte Sedimentation Rate 8 mm/hr (0-20)
--- NOTE | 2024-08-25 12:53 | DVHINCON2 ---
GI Consult Consult Note GI consult note Date of Consultation: 08/25/2024 Chief Complaint: GERD hematochezia Referring Physician: H&P: 43-year-old male presented to ER with hematochezia. Symptoms have been on and off for the past four months, occurring about 3 times per week. Last episode 08/24/2024 was worse than usual. Patient complaining of epigastric pain starting this morning. No nausea or vomiting. No melena. Patient admits to weight loss of 30 lb in three months with lifestyle changes No colonoscopy in past. No blood thinners. No family history of colon cancer Past Medical History: Hypertension, bipolar disorder, anxiety, PTSD, ADHD, GERD. Multiple traumatic injuries during contact sports Past Surgical History: Left knee surgery arthroscopy after trauma. Right knee meniscus repair, right ankle repair Social History: NO smoking, drinking ETOH Marijuana Family History: Noncontributory Review of Systems: Constitutional: no fever, chill, weight loss HEENT: no eye pain, no hearing loss, no oral lesion, no scleral icterus Heart: no chest pain, no chest pressure Lung: no cough, no dyspnea with exertion Abdomen: see HPI : no pain with urination, normal appearing urine Musculoskeletal: Back pain Physical exam: General: NAD, AAOX3 Chest: lung braswell clear to auscultation Heart: RRR, no murmur Abdomen: non-distended, no tenderness to palpation, +BS Labs: Labs Test 08/25/24 11:26 08/25/24 06:48 08/25/24 05:58 08/25/24 03:54 Range/Units Urine Color Light-yellow Yellow Urine Clarity Clear Clear Urine pH 7.0 5.0-9.0 Urine Specific Hurricane 1.036 H 1.001-1.035 Urine Protein Negative Negative Urine Ketones Negative Negative Urine Blood Negative Negative /uL Urine Nitrite Negative Negative Urine Bilirubin Negative Negative Urine Urobilinogen Normal Negative mg/dL Urine Leukocyte Esterase Negative Negative /uL Urine RBC <1 0 - 3 /hpf Urine Microscopic WBC < 1 0-3 /HPF Urine Squamous Epithelial Cells None seen <5 /hpf Urine Bacteria None seen None Seen /hpf Urine Glucose Normal Normal mg/dL Urine Opiates Screen Neg NEGATIVE Urine Fentanyl Screen Neg NEGATIVE Urine Barbiturates Screen Neg NEGATIVE Urine Phencyclidine Screen Neg NEGATIVE Urine Amphetamines Screen Neg NEGATIVE Urine Benzodiazepines Screen Neg NEGATIVE Urine Cocaine Screen Neg NEGATIVE Urine Cannabinoids Screen Pos NEGATIVE White Blood Count 11.5 H 4.4-10.8 10^3/uL Red Blood Count 5.52 4.5-5.90 10^6/uL Hemoglobin 16.3 13.5-17.5 g/dL Hematocrit 48.0 41.0-53.0 % Mean Corpuscular Volume 87.1 80.0-100.0 fL Mean Corpuscular Hemoglobin 29.6 28.0-32.0 pg Mean Corpuscular Hemoglobin Concent 34.0 32.0-36.0 g/dL Red Cell Distribution Width 13.3 11.8-14.3 % Platelet Count 229 140-450 10^3/uL Mean Platelet Volume 8.6 6.9-10.8 fL Neutrophils (%) (Auto) 77.6 37.0-80.0 % Lymphocytes (%) (Auto) 11.7 10.0-50.0 % Monocytes (%) (Auto) 8.4 0.0-12.0 % Eosinophils (%) (Auto) 1.8 0.0-7.0 % Basophils (%) (Auto) 0.5 0.0-2.0 % Neutrophils # (Auto) 8.9 H 1.6-8.6 10 ^3/uL Lymphocytes # (Auto) 1.3 0.4-5.4 10 ^3/uL Monocytes # (Auto) 1.0 0-1.3 10 ^3/uL Eosinophils # (Auto) 0.2 0-0.8 10 ^3/uL Basophils # (Auto) 0.1 0-0.2 10 ^3/uL Nucleated Red Blood Cells 0.1 % Sodium Level 138 136-145 mmol/L Potassium Level 4.1 3.5-5.1 mmol/L Chloride Level 105 98-107 mmol/L Carbon Dioxide Level 25 20-31 mmol/L Anion Gap 8 5-15 Blood Urea Nitrogen 11 9-23 mg/dL Creatinine 0.85 0.700-1.30 mg/dL Glomerular Filtration Rate Calc 111 >90 mL/min BUN/Creatinine Ratio 12.9 10.0-20.0 Serum Glucose 110 H 74-106 mg/dL Hemoglobin A1c 5.2 <5.7 % A1C Calcium Level 9.0 8.7-10.4 mg/dL Phosphorus Level 2.5 2.4-5.1 mg/dL Magnesium Level 1.9 1.6-2.6 mg/dL Total Bilirubin 0.4 0.2-1.0 mg/dL Aspartate Amino Transferase (AST) 45 H 13-40 U/L Alanine Aminotransferase (ALT) 47 H 7-40 U/L Alkaline Phosphatase 68 46-116 U/L C-Reactive Protein High Sensitivity 0.90 <1.0 mg/dL Total Protein 6.5 5.7-8.2 g/dL Albumin 4.1 3.2-4.8 g/dL Triglycerides Level 68 < 150 mg/dL Cholesterol Level 122 < 200 mg/dL LDL Cholesterol 66 < 100 mg/dL HDL Cholesterol 46 40-59 mg/dL Lipase 45 12-53 U/L Vitamin B12 Level 1020 H 211-911 pg/mL Vitamin D 25-Hydroxy 90.7 30.0-100 ng/mL Thyroid Stimulating Hormone (TSH) 1.02 0.55-4.78 uIU/mL Plasma/Serum Blood Alcohol 3.2 <10 mg/dL Prothrombin Time 10.5 9.3-11.8 sec Prothrombin Time INR 0.99 0.9-1.15 Activated Partial Thromboplast Time 29.6 24.5-34.5 SEC Lactic Acid Level 0.5 0.4-2.0 mmol/L Imaging: CT abdomen pelvis IMPRESSION: 1. No findings to suggest active gastrointestinal bleed. Given patient's history, colonoscopy should be considered for further evaluation. 2. Sigmoid diverticulosis without acute diverticulitis. 3. Low attenuation in the upper pole of the left kidney. Pyelonephritis not excluded. Correlation with urinalysis inflammatory laboratory markers recommended. Assessment: GI bleed GERD Abdominal pain Marijuana use Plan: Discussed with Dr. Gray - Pt will be scheduled for colonoscopy tomorrow 08-26-2024. Pt was informed of the risks (bleeding, infection, perforation, reaction to sedation medications and cardiopulmonary arrest) and benefit and is agreeable to undergo the procedures. Clear liquid diet Discussed plan with patient and RN Thank you for this consult Date of Service: August 25, 2024 Billing Provider: KRIS OVALLE Common Visit Codes: CONSULT ONLY Consultation Codes: [id number] CONSULT <60MIN KRIS OVALLE August 25, 2024 12:53
--- NOTE | 2024-08-25 12:54 | DVH ---
INDICATION: ELEVATED LFT'S TECHNIQUE: Multiple real-time sonographic images were obtained of the right upper quadrant and left k idney. COMPARISON: 08/25/24 FINDINGS: The liver demonstrates homogenous increasedwithout focal mass lesions. The liver measures 1 7 cm. There is a echogenic lesion in the left hepatic lobe measuring 4.4 cm. There is no intrahepat ic or extrahepatic ductal dilatation. The common duct measures 0.4 mm. The gallbladder is without evidence of stone or sludge. The gallbladder wall measures 3 mm and is wi thin normal limits. The right kidney measures 11.3 cm. The right kidney is normal in contour, size, and shape. The echog enicity is in increased. There is no hydronephrosis. Left kidney demonstrates increased echogenicity. The pancreas is not well visualized due to overlying bowel gas. IMPRESSION: No sonographic evidence of gallstones or acute cholecystitis. Hepatic steatosis. A 4.4 cm echogenic lesion in the left hepatic lobe may represent a hemangioma. F urther evaluation with MRI or CT multiphase liver protocol is recommended. Bilateral increased echogenicity of the kidneys which is nonspecific but can be seen in setting of ch ronic medical renal disease. No hydronephrosis.
[2024-08-25] MEDS: GOLYTELY 4L KIT PO ONE (14:15)
[2024-08-25] MEDS: LISINOPRIL 20 MG TAB PO ONE (16:34)
[2024-08-25] MEDS: MORPHINE SULFATE INJ 2 MG/ml SYRG IV ONE (17:13)
[2024-08-25] MEDS ORDERED: ONDANSETRON HCL 4 MG/2 ML VIAL IV PRN (17:45)
[2024-08-25] MEDS: PANTOPRAZOLE 40 MG/10 ML VIAL INJ IV SCH (21:59)
[2024-08-25] MEDS: ALPRAZolam 0.25 MG TAB PO PRN (22:08)
[2024-08-26] VITALS (7 sets, daily range): BP systolic 110–152; BP diastolic 47–88; PULSE 72–83; RESP 18–66; TEMP 36.7; O2SAT 94–98
[2024-08-26] MEDS: HYDROmorphone HCL 2 MG/ML VL/or syr IV PRN (03:45)
[2024-08-26] MEDS: MAGNESIUM CITRATE SOLUTION 300 ML BTL PO ONE (05:52)
[2024-08-26] MEDS: GOLYTELY 4L KIT PO ONE (05:52)
[2024-08-26] MEDS ORDERED: cefTRIAXone 1GM/50ML D5W 50 ML IV SCH (09:00)
[2024-08-26] MEDS ORDERED: LISINOPRIL 20 MG TAB PO SCH (10:00)
[2024-08-26] MEDS ORDERED: MIDAZOLAM HCL 2MG/2ML 2ml VIAL (1mg/ml) ONE ×2 (10:34→11:02)
[2024-08-26] MEDS ORDERED: fentaNYL CITRATE 100 MCG/2 ML VL ONE (10:34)
[2024-08-26 10:38] LABS: Hepatitis B Core Total AB Negative (Negative)
[2024-08-26] MEDS ORDERED: DexAMETHasone SOD PHOS 10MG/1ML VIAL INJ ONE (10:51)
[2024-08-26] MEDS ORDERED: PROPOFOL 10 MG/ML 20 ML IV ONE (10:52)
[2024-08-26] MEDS ORDERED: ONDANSETRON HCL 4 MG/2 ML VIAL ONE (10:52)
--- NOTE | 2024-08-26 11:14 | DVHOP2 ---
Operative Report DATE OF OPERATION: 08/26/24 PROCEDURE: Diagnostic Colonoscopy. PREOPERATIVE INDICATION: The patient is a 43 -year-old male undergoing colonoscopy for rectal bleeding POSTOPERATIVE DIAGNOSES: 1. Patient had one to 2+ slightly engorged internal hemorrhoids 2. Otherwise essentially completely normal colonoscopy examination up to the cecum and terminal ileum with no active bleeding PROCEDURE PERFORMED BY: Lauren Gray M.D. SCOPE: Olympus videocolonoscope. ASA CLASS: 3. PREOPERATIVE MEDICATIONS: Dr. Jesse Doyle PROCEDURE IN DETAIL: After obtaining an informed consent, the patient was placed on left lateral decubitus position. He was then sedated with the above medications. A rectal examination was performed that was normal. The colonoscope was then passed through the anus into the rectosigmoid and through the descending, transverse, and ascending colon up to the cecum with visualization of the appendiceal orifice, base of the cecum and the ileocecal valve. The colonoscope was then withdrawn. The distal 5-10 cm of the terminal ileum were normal No polyps or masses were seen. There was no colitis or diverticular disease. Patient had mild tortuosity and redundancy of the colon There was no fresh or old blood in the colon and he had a good and adequate bowel prep On retroflexion and straight on view patient had one to 2+ internal hemorrhoids that were slightly inflamed but no active bleeding The patient tolerated the procedure well without difficulty. WITHDRAWAL TIME: 7 minute QUALITY OF THE PREP: [place] Bowel Prep score: 9. COMPLICATIONS : None SPECIMENS: None DISPOSITION: Transfer back to the floor Stable PLAN: 1. Repeat colonoscopy in 10 years 2. Local anorectal hemorrhoidal care 3. Resume regular diet as tolerated 4. Stool softeners 5. Outpatient follow up with me in 4-6 weeks to review results and discuss further management LAUREN GRAY MD August 26, 2024 11:13
[2024-08-26 11:16] LABS: Hepatitis A Total Antibody Negative (Negative); Hepatitis B Surface Antibody Positive (Negative); Hepatitis B Surface Antigen Negative (Negative); Hepatitis C Antibody Negative (Negative)
[2024-08-26] MEDS ORDERED: HYDROCORTISONE ACET 25 MG RECTAL SUPP PR ONE (11:30)
[2024-08-26] MEDS ORDERED: PHENSUP38 PR (14:19)
[2024-08-26] MEDS ORDERED: DOCU-94 PO (14:19)
[2024-08-26] MEDS ORDERED: PANT40TA2 PO (14:19)
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
== END 2024-08-26 16:00 | disposition home or self-care (01) | DRG 394 ==
LOC: ER 03:02 → OVERFLOW 05:45 → TELE-WESTW 21:30
PROVIDERS: ADMIT Internal Medicine; ATTEND Internal Medicine
PROC: 0DJD8ZZ Inspection of Lower Intestinal Tract, Via Natural or Artificial Opening Endoscopic (ICD-10-PCS; principal; 2024-08-26 10:45)
DX: K64.8 Other hemorrhoids (principal); Q43.8 Other specified congenital malformations of intestine; F17.210 Nicotine dependence, cigarettes, uncomplicated; K21.9 Gastro-esophageal reflux disease without esophagitis; F31.9 Bipolar disorder, unspecified; I10 Essential (primary) hypertension; F43.10 Post-traumatic stress disorder, unspecified; D72.829 Elevated white blood cell count, unspecified; F12.90 Cannabis use, unspecified, uncomplicated; F41.9 Anxiety disorder, unspecified; F90.9 Attention-deficit hyperactivity disorder, unspecified type; Z79.899 Other long term (current) drug therapy
CPT/HCPCS: 36415; 74177; 76705; 80048; 80053; 80061; 80307; 80320; 81001; 82306; 82607; 83036; 83605; 83690; 83735; 84100; 84443; 85025; 85610; 85652; 85730; 86141; 86704; 86706; 86708; 86803; 86850; 86900; 86901; 87340; 94660; 96365; 96375; 99291; G0378; J1100; J2250; J2405; J2470; J2704

== ENCOUNTER 2024-08-30 23:01 | Emergency (ER) | payer BC ==
[~2024-08-30] VITALS: Ht 172.7 cm; Wt 95.5 kg
[~2024-08-30 23:01] MED LIST changes: +ALPR0.25 PO; +DOCU-94 PO; +PANT40TA2 PO; +PHENSUP38 PR
--- NOTE | 2024-08-31 00:48 | ED.PDOC ---
History of Present Illness HPI Comments 43-year-old male presents with a chief complaint of abdominal pain 3/10 x 3 days. Patient was recently D/C 08/27/24 from [facility] for GI bleeding which he had a colonoscopy done and all it showed was hemorrhoids. Patient denies any blood in stool, N/V/D. Patient A&Ox4. BP elevated at 181/107. Chief Complaint: Abdominal Pain Time Seen by MD: 00:45 Primary Care Provider: ALEXANDER De La Rosa Notes: Medications, Allergies Allergies: Coded Allergies: NO KNOWN ALLERGIES (Unverified , 09/20/20) Home Meds Active Scripts Pantoprazole Sodium Sesquihydr (Protonix) 40 Mg Tab, 40 MG PO DAILY for 30 Days, #30 TAB Prov:SOHAM BROWN RESIDENT 08/26/24 Docusate Sodium (Colace) 100 Mg Cap, 1 CAP PO BID for 30 Days, #60 CAP Prov:SOHAM BROWN RESIDENT 08/26/24 Phenylephrine-Shark Liver Oil- (Hemorrhoidal Suppositorie 0.25-3-85.5 %) 1 Sup Sup, 1 SUP LA DAILYPRN PRN for 30 Days, #30 SUPP Prov:SOHAM BROWN RESIDENT 08/26/24 Reported Medications Alprazolam (Xanax) 0.25 Mg Tb, 1 TAB PO BIDPRN PRN for ANXIETY, #30 TAB 08/25/24 Lisinopril (Lisinopril) 20 Mg Tab, 20 MG PO DAILY, TAB 09/20/20 Discontinued Reported Medications Propranolol HCl (Propranolol Hydrochloride) 10 Mg Tab, 10 MG PO TID, TAB 08/25/24 Information Source: Patient Mode of Arrival: Ambulatory Severity: Moderate Timing: Days Duration: Since onset Prehospital treatment: None Vital Signs Vital Signs Date Time Temp Pulse Resp B/P (MAP) Pulse Ox O2 Delivery O2 Flow Rate FiO2 08/31/24 00:59 98.2 65 19 159/98 (118) 97 98.2 Physical Exam General: Awake, alert and oriented. No acute distress. Skin: Skin in warm, dry and intact. Appropriate color for ethnicity. HEENT: The head is normocephalic and atraumatic. Conjunctivae are clear without exudates or hemorrhage. Sclera is non-icteric. EOM are intact. No signs of nystagmus. Eyelids are normal in appearance without swelling or lesions. Oral mucosa is pink and moist Neck: The neck is supple with normal range of motion. No JVD. Cardiac: Heart rate and rhythm are normal. No murmurs, gallops, or rubs are auscultated. Respiratory: No signs of respiratory distress. Lung sounds are clear in all lobes bilaterally without rales, rhonchi, or wheezes. Abdominal: Abdomen is soft, non-tender without distention. Bowel sounds are present and normoactive in all four quadrants. Extremities: Upper and lower extremities are atraumatic in appearance without deformity or edema. Neurological: The patient is awake, alert and oriented to person, place, and time with normal speech. Speech is clear. There is no facial asymmetry. Psychiatric: Appropriate mood and affect. Good judgement and insight. Review of Systems: REVIEW OF SYSTEMS: No fever, no chills, or fatigue HEENT: No sore throat, no earache, no congestion, no neck pain. Cardiac: No chest pain. No palpitations. Lungs: No shortness of breath, no cough. GI: No nausea, no vomiting, no diarrhea, no constipation, positive abdominal pain : No dysuria, frequency, or urgency. No hematuria. Musculoskeletal: No joint pain , no joint swelling, no extremity edema. Skin: No rash, no itching. Neuro: No headache, no dizziness, no weakness Past Medical History PAST MEDICAL HISTORY: Denies Surgical History: Denies all surgeries Family History Family History: Reviewed,noncontributory to illness, No family hx of Cancer, No family hx of Heart fatuma, No family hx of HTN, No family hx ofKidney fatuma, No family hx of Liver fatuma, No family hx of Lung fatuma, No family hx of Stroke, Family hx of DM Social History Smoker: Cigarettes, Less Than 1 Pack/Day Alcohol: Denies ETOH Use Drugs: Denies Drug Use Lives In: Home Was a procedure done? Was a procedure done?: No Differential Dx Considerations may include: Differential diagnoses considered include: Abdominal aortic aneurysm, MS, esophageal rupture, intestinal obstruction, mesenteric ischemia, perforated viscus or solid organ rupture, CHF with hepatomegaly, pneumonia, abscess, appendicitis, biliary disease, diverticulitis, gastritis, gastroenteritis, hepatitis, hernia, inflammatory bowel disease, pancreatitis, peptic ulcer disease, urinary tract infection, ureteral colic, constipation, GERD, irritable syndrome, abdominal wall pain, nonspecific abdominal pain, herpes zoster. X-Ray, Labs, Meds, VS Vital Signs Date Time Temp Pulse Resp B/P (MAP) Pulse Ox O2 Delivery O2 Flow Rate FiO2 08/31/24 00:59 98.2 65 19 159/98 (118) 97 98.2 08/30/24 23:01 98.9 85 18 181/107 (131) 97 98.9 Lab Test 08/31/24 01:09 08/31/24 00:46 Range/Units Urine Color Light-yellow Yellow Urine Clarity Clear Clear Urine pH 6.0 5.0-9.0 Urine Specific House 1.012 1.001-1.035 Urine Protein Negative Negative Urine Ketones Negative Negative Urine Blood Negative Negative /uL Urine Nitrite Negative Negative Urine Bilirubin Negative Negative Urine Urobilinogen Normal Negative mg/dL Urine Leukocyte Esterase Negative Negative /uL Urine RBC 1 0 - 3 /hpf Urine Microscopic WBC < 1 0-3 /HPF Urine Squamous Epithelial Cells None seen <5 /hpf Urine Bacteria None seen None Seen /hpf Urine Glucose Normal Normal mg/dL White Blood Count 12.0 H 4.4-10.8 10^3/uL Red Blood Count 5.68 4.5-5.90 10^6/uL Hemoglobin 16.9 13.5-17.5 g/dL Hematocrit 48.8 41.0-53.0 % Mean Corpuscular Volume 85.9 80.0-100.0 fL Mean Corpuscular Hemoglobin 29.7 28.0-32.0 pg Mean Corpuscular Hemoglobin Concent 34.6 32.0-36.0 g/dL Red Cell Distribution Width 13.3 11.8-14.3 % Platelet Count 306 140-450 10^3/uL Mean Platelet Volume 8.1 6.9-10.8 fL Neutrophils (%) (Auto) 68.6 37.0-80.0 % Lymphocytes (%) (Auto) 17.1 10.0-50.0 % Monocytes (%) (Auto) 9.6 0.0-12.0 % Eosinophils (%) (Auto) 3.7 0.0-7.0 % Basophils (%) (Auto) 1.0 0.0-2.0 % Neutrophils # (Auto) 8.2 1.6-8.6 10 ^3/uL Lymphocytes # (Auto) 2.1 0.4-5.4 10 ^3/uL Monocytes # (Auto) 1.2 0-1.3 10 ^3/uL Eosinophils # (Auto) 0.4 0-0.8 10 ^3/uL Basophils # (Auto) 0.1 0-0.2 10 ^3/uL Nucleated Red Blood Cells 0.0 % Sodium Level 137 136-145 mmol/L Potassium Level 4.1 3.5-5.1 mmol/L Chloride Level 104 98-107 mmol/L Carbon Dioxide Level 28 20-31 mmol/L Anion Gap 5 5-15 Blood Urea Nitrogen 16 9-23 mg/dL Creatinine 1.00 0.700-1.30 mg/dL Glomerular Filtration Rate Calc 96 >90 mL/min BUN/Creatinine Ratio 16.0 10.0-20.0 Serum Glucose 107 H 74-106 mg/dL Lactic Acid Level 0.9 0.4-2.0 mmol/L Calcium Level 9.1 8.7-10.4 mg/dL Total Bilirubin 0.2 0.2-1.0 mg/dL Aspartate Amino Transferase (AST) 43 H 13-40 U/L Alanine Aminotransferase (ALT) 38 7-40 U/L Alkaline Phosphatase 87 46-116 U/L Total Protein 7.4 5.7-8.2 g/dL Albumin 4.6 3.2-4.8 g/dL Lipase 67 H 12-53 U/L Current Medications Medications (Trade) Dose Ordered Sig/Qing Route Start Time Stop Time Status Last Admin Al Hydrox/Mg Hydrox/Simethicone (Maalox Plus) 30 ml ONCE ONCE PO 08/31/24 00:45 08/31/24 00:46 DC 08/31/24 00:59 Lidocaine HCl (Xylocaine 2% Viscous) 10 ml ONCE ONCE PO 08/31/24 00:45 08/31/24 00:46 DC 08/31/24 00:59 Time of 1ST Reevaluation: 01:15 Reevaluation 1ST: Unchanged Patient Education/Counseling: Need For Follow Up Family Education/Counseling: No Family Present Departure 1 Departure Time of Disposition: 02:05 Impression: Primary Impression: Acute abdominal pain Disposition: 01 HOME / SELF CARE / HOMELESS Condition: Stable Additional Instructions: ED DISCHARGE INSTRUCTIONS Instructions: Please read all instructions provided in this packet carefully. Although you have been discharged from the Emergency Department, this does not mean that you have a "clean bill of health". No definitive diagnosis for your symptoms has been made today. It is possible that you are in the process of developing a serious illness. This is why you must return to the ED without fail if any new or worsening symptoms (especially if your symptoms include chest pain, trouble breathing, abdominal pain, fever, headache, confusion, trouble seeing, or trouble walking) It is also very important that you see a primary care doctor within the next 3-5 days to follow up. If you are unable to get an appointment, return to the ED for re-evaluation. You had elevated blood pressure reading today. Untreated high blood pressure can have serious consequences. However, you need a follow-up appointment to recheck your blood pressure to determine whether or not you need treatment. Make an appointment with your primary care provider for this within the next week. Abdominal Pain: Care Instructions Overview Abdominal pain has many possible causes. Some aren't serious and get better on their own in a few days. Others need more testing and treatment. If your pain continues or gets worse, you need to be rechecked and may need more tests to find out what is wrong. You may need surgery to correct the problem. Don't ignore new symptoms, such as fever, nausea and vomiting, urination problems, pain that gets worse, and dizziness. These may be signs of a more serious problem. If you are not getting better, you may need more tests or treatment. The doctor has checked you carefully, but problems can develop later. If you notice any problems or new symptoms, get medical treatment right away. Follow-up care is a arellano part of your treatment and safety. Be sure to make and go to all appointments, and call your doctor if you are having problems. It's also a good idea to know your test results and keep a list of the medicines you take. How can you care for yourself at home? Rest until you feel better. To prevent dehydration, drink plenty of fluids. Choose water and other clear liquids until you feel better. If you have kidney, heart, or liver disease and have to limit fluids, talk with your doctor before you increase the amount of fluids you drink. When you feel like eating, start with small amounts. Do not have alcohol, caffeine, or spicy, hot, or high-fat foods for a day or two. Avoid anti-inflammatory medicines such as aspirin, ibuprofen (Advil, Motrin), and naproxen (Aleve). These can cause stomach upset. Talk to your doctor if you take daily aspirin for another health problem. When should you call for help? Call 911 anytime you think you may need emergency care. For example, call if: You passed out (lost consciousness). You pass maroon or very bloody stools. You vomit blood or what looks like coffee grounds. You have severe belly pain. Call your doctor now or seek immediate medical care if: Your pain gets worse, especially if it becomes focused in one area of your belly. You have a new or higher fever. Your stools are black and look like tar, or they have streaks of blood. You have unexpected vaginal bleeding. You have symptoms of a urinary tract infection. These may include: Pain when you urinate. Urinating more often than usual. Blood in your urine. You are dizzy or lightheaded, or you feel like you may faint. Watch closely for changes in your health, and be sure to contact your doctor if: You are not getting better as expected. Credits for Abdominal Pain: Care Instructions Current as of: February 12, 2023 Author: [employer] Staff Clinical Review Board All [employer] education is reviewed by a team that includes physicians, nurses, advanced practitioners, registered dieticians, and other healthcare professionals. Comments 43-year-old male presented with abdominal pain. No peritoneal signs on abdominal exam. No evidence of acute abdomen at this time. patient is well appearing. Labs show no significant leukocytosis or elevation of LFTs. CT abdomen and pelvis shows no acute process. Patient is afebrile. Patient is not hypotensive. Low suspicion for acute hepatobiliary disease (including acute cholecystitis, acute pancreatitis, PUD (including perforation), acute infectious process (pneumonia, hepatitis, pyelonephritis), acute appendicitis, vascular catastrophe, bowel obstructions, viscous perforation. Presentation not consistent with other acute, emergent causes of abdominal pain at this time. Patient well-appearing, nontoxic. Advised prompt follow-up with PCP, return to the ED with any new, worsening or concerning symptoms. - I reviewed the following notes from the pt's past medical encounters: Encounter 08/25/2024 for GI bleed/hemorrhoid. The following tests were ordered, and results were reviewed by me: (See diagnostic results section) The following test were independently interpreted by me: N/A Additional information was gathered from interviewing the following independent historians: N/A I reviewed and agreed with the following test results read by other providers: N/A I discussed treatments and results with patient Decision regarding hospitalization or escalation of hospital level of care: Risks and benefits of admission for further treatment of patient's condition was considered however due to patient's stable condition patient will be discharged to follow up closely or return to care for worsening of condition or inability to follow up. Critical Care Note Critical Care Time?: No Stability Stability form required: No Heart Score Heart Score: Heart Score Response (Comments) Value History N/A 0 EKG N/A 0 Age N/A 0 Risk Factors N/A 0 Troponin N/A 0 Total 0 I personally scribed for OSCAR GUO MD ([email or web address]) on 08/31/24 at 00:48. E lectronically submitted by Antolin Kovacs ([email or web address]). OSCAR GUO MD August 31, 2024 00:48
[2024-08-31 00:59] VITALS: BP 159/98; PULSE 65; RESP 19; TEMP 98.2; O2SAT 97
[2024-08-31] MEDS: LIDOCAINE VISCOUS 2% 15ML UD PO ONE (00:59)
[2024-08-31] MEDS: MAALOX PLUS or MAALOX 30 ML PO ONE (00:59)
[2024-08-31 01:01] LABS: Basophils # (auto) 0.1 10 ^3/uL (0-0.2); Eosinophils # (auto) 0.4 10 ^3/uL (0-0.8); Eosinophils % (auto) 3.7 % (0.0-7.0); Hematocrit 48.8 % (41.0-53.0); Hemoglobin 16.9 g/dL (13.5-17.5); Lymphocytes # (auto) 2.1 10 ^3/uL (0.4-5.4); Lymphocytes % (auto) 17.1 % (10.0-50.0); Mean Corpuscular Hemoglobin 29.7 pg (28.0-32.0); Mean Corpuscular Hgb Conc. 34.6 g/dL (32.0-36.0); Mean Corpuscular Volume 85.9 fL (80.0-100.0); Monocytes # (auto) 1.2 10 ^3/uL (0-1.3); Monocytes % (auto) 9.6 % (0.0-12.0); Neutrophils # (auto) 8.2 10 ^3/uL (1.6-8.6); Neutrophils % (auto) 68.6 % (37.0-80.0); Platelet Count (auto) 306 10^3/uL (140-450); Red Blood Cells 5.68 10^6/uL (4.5-5.90); Red Cell Distribution Width 13.3 % (11.8-14.3)
[2024-08-31 01:10] LABS: Urine Bacteria None Seen /hpf (None Seen)
[2024-08-31 01:26] LABS: Alanine Aminotransferase 38 U/L (7-40); Albumin 4.6 g/dL (3.2-4.8); Alkaline Phosphatase 87 U/L (46-116); Anion Gap 5 (5-15); Blood Urea Nitrogen 16 mg/dL (9-23); Calcium 9.1 mg/dL (8.7-10.4); Carbon Dioxide 28 mmol/L (20-31); Chloride 104 mmol/L (98-107); Potassium 4.1 mmol/L (3.5-5.1); Sodium 137 mmol/L (136-145); Total Protein 7.4 g/dL (5.7-8.2)
[2024-08-31 01:27] LABS: Aspartate Aminotransferase 43 U/L (13-40); Bilirubin, Total 0.2 mg/dL (0.2-1.0); Glucose 107 mg/dL (74-106); Lipase 67 U/L (12-53)
[2024-08-31 01:30] LABS: Urine Blood Negative /uL (Negative); Urine Clarity Clear (Clear); Urine Color Light-Yellow (Yellow); Urine Protein, UAD Negative (Negative); Urine Specific Gravity 1.012 (1.001-1.035); Urine Squamous Epithelial Cell None Seen /hpf (<5); Urine Urobilinogen Normal (Negative); Urine WBC < 1 /HPF (0-3)
--- NOTE | 2024-08-31 01:56 | DVH ---
CLINICAL HISTORY: Abdominal pain TECHNIQUE: CT of the abdomen and pelvis was performed without intravenous contrast. This exam was per formed according to our departmental dose optimization program. Up-to-date CT equipment and radiation dose reduction techniques are utilized as appropriate. CTDI: 12.48 DLP: 709.34 WID: COMPARISON: None FINDINGS: Lower Thorax: Unremarkable. Liver and Biliary system: Unremarkable. Spleen: Unremarkable. Adrenal Glands and Kidneys: Unremarkable. Pancreas and Retroperitoneum: Unremarkable. Aorta and Major Vessels: Aortoiliac vessels are normal in caliber. Bowel, Mesentery and Peritoneal space: Normal caliber small and large bowel. Normal appendix. No free air or fluid collection. Pelvis: Dystrophic ossification on the left in the prostate gland. Urinary bladder is mildly distend ed. There is no pelvic lymphadenopathy. Abdominal wall and Osseous Structures: Mild lower thoracic and lumbar spondylosis greatest at L5-S1. No destructive osseous lesion. IMPRESSION: No noncontrast evidence of acute abnormality.
== END 2024-08-31 02:26 | disposition home or self-care (01) ==
LOC: ER 23:01
DX: R10.9 Unspecified abdominal pain (principal); F17.210 Nicotine dependence, cigarettes, uncomplicated; Z79.899 Other long term (current) drug therapy
CPT/HCPCS: 36415; 74176; 80053; 81001; 83605; 83690; 85025

== ENCOUNTER 2024-09-07 03:58 | Emergency (ER) | payer BC ==
[~2024-09-07] VITALS: Ht 172.7 cm; Wt 94.1 kg
--- NOTE | 2024-09-07 04:31 | ED.PDOC ---
History of Present Illness HPI Comments 43 y/o M presents with c/o abdominal pain. Reports on pain being localized just above his naval and nonradiating. Suspects on having "ulcers." Reports previous history of "GI issues" in the past, with accompanying hospital admission and endoscopy. Denies any nausea, vomiting, diarrhea, urinary symptoms, fever, chills, or further associated symptoms. Chief Complaint: Abdominal Pain Time Seen by MD: 04:15 Primary Care Provider: ALEXANDER De La Rosa Notes: Nurses Notes, Medications, Allergies Allergies: Coded Allergies: NO KNOWN ALLERGIES (Unverified , 09/20/20) Home Meds Active Scripts Ondansetron Odt 4MG Tab (ZOFRAN PO) 4 Mg Tb, 4 MG PO Q6HP PRN, #30 TAB ODT TAB-DISSOLVE IN MOUTH, THEN SWALLOW Prov:SAMMY LAW MD 09/07/24 Famotidine (PEPCID TABLET) 20 Mg Tb, 1 TAB PO BID PRN, #60 TAB 5 Refills Prov:SAMMY LAW MD 09/07/24 Pantoprazole Sodium Sesquihydr (Protonix) 40 Mg Tab, 40 MG PO DAILY for 30 Days, #30 TAB Prov:SOHAM BROWN 08/26/24 Docusate Sodium (Colace) 100 Mg Cap, 1 CAP PO BID for 30 Days, #60 CAP Prov:SOHAM BROWN 08/26/24 Phenylephrine-Shark Liver Oil- (Hemorrhoidal Suppositorie 0.25-3-85.5 %) 1 Sup Sup, 1 SUP MD DAILYPRN PRN for 30 Days, #30 SUPP Prov:SOHAM BROWN RESIDENT 08/26/24 Reported Medications Alprazolam (Xanax) 0.25 Mg Tb, 1 TAB PO BIDPRN PRN for ANXIETY, #30 TAB 08/25/24 Lisinopril (Lisinopril) 20 Mg Tab, 20 MG PO DAILY, TAB 09/20/20 Information Source: Patient Mode of Arrival: Ambulatory Severity: Mild Timing: Hours Duration: Since onset Prehospital treatment: None Past Medical History PAST MEDICAL HISTORY: Denies Surgical History: Denies all surgeries Family History Family History: Reviewed,noncontributory to illness, No family hx of Cancer, No family hx of Heart fatuma, No family hx of HTN, No family hx ofKidney fatuma, No family hx of Liver fatuma, No family hx of Lung fatuma, No family hx of Stroke, Family hx of DM Social History Smoker: Cigarettes, Less Than 1 Pack/Day Alcohol: Denies ETOH Use Drugs: Denies Drug Use Lives In: Home All Other Systems: Reviewed and Negative (Comprehensive systems review obtained and negative except for what is stated in the HPI.) Physical Exam General Appearance: Mild Distress, Normal HEENT: Normal ENT Inspection, Pharynx Normal, TMs Normal Neck: Full Range of Motion, Non-Tender, Normal, Normal Inspection Respiratory: Chest Non-Tender, Lungs Clear, No Accessory Muscle Use, No Respiratory Distress, Normal Breath Sounds Cardiovascular: No Edema, No JVD, No Murmur, No Gallop, Normal Peripheral Puls es, Regular Rate/Rhythm Breast Exam: Deferred Gastrointestinal: No Organomegaly, Non Tender, No Pulsatile Mass, Normal Bowel Sounds, Soft Genitalia: Deferred Pelvic: Deferred Rectal: Deferred Extremities: No calf tenderness, Normal capillary refill, Normal inspection, Normal range of motion, Non-tender, No pedal edema Musculoskeletal : Apperance: Normal Neurologic: Alert, slate trimmer II-XII nml as Tested, No Motor Deficits, Normal Affect, Normal Mood, No Sensory Deficits Cerebellar Function: Normal Reflexes: Normal Skin: Dry, Normal Color, Warm Lymphatic: No Adenopathy Was a procedure done? Was a procedure done?: No Differential Dx Considerations may include: Gastritis, gastroenteritis, PUD, GERD, among others X-Ray, Labs, Meds, VS Vital Signs Date Time Temp Pulse Resp B/P (MAP) Pulse Ox O2 Delivery O2 Flow Rate FiO2 09/07/24 04:09 98.3 89 16 147/98 (114) 96 98.3 Lab Test 09/07/24 04:47 Range/Units White Blood Count 12.2 H 4.4-10.8 10^3/uL Red Blood Count 5.90 4.5-5.90 10^6/uL Hemoglobin 17.4 13.5-17.5 g/dL Hematocrit 50.3 41.0-53.0 % Mean Corpuscular Volume 85.3 80.0-100.0 fL Mean Corpuscular Hemoglobin 29.5 28.0-32.0 pg Mean Corpuscular Hemoglobin Concent 34.6 32.0-36.0 g/dL Red Cell Distribution Width 12.9 11.8-14.3 % Platelet Count 333 140-450 10^3/uL Mean Platelet Volume 7.7 6.9-10.8 fL Neutrophils (%) (Auto) 77.8 37.0-80.0 % Lymphocytes (%) (Auto) 13.4 10.0-50.0 % Monocytes (%) (Auto) 6.8 0.0-12.0 % Eosinophils (%) (Auto) 1.8 0.0-7.0 % Basophils (%) (Auto) 0.2 0.0-2.0 % Neutrophils # (Auto) 9.5 H 1.6-8.6 10 ^3/uL Lymphocytes # (Auto) 1.6 0.4-5.4 10 ^3/uL Monocytes # (Auto) 0.8 0-1.3 10 ^3/uL Eosinophils # (Auto) 0.2 0-0.8 10 ^3/uL Basophils # (Auto) 0 0-0.2 10 ^3/uL Nucleated Red Blood Cells 0.1 % Sodium Level 138 136-145 mmol/L Potassium Level 3.6 3.5-5.1 mmol/L Chloride Level 101 98-107 mmol/L Carbon Dioxide Level 28 20-31 mmol/L Anion Gap 9 5-15 Blood Urea Nitrogen 13 9-23 mg/dL Creatinine 1.09 0.700-1.30 mg/dL Glomerular Filtration Rate Calc 87 >90 mL/min BUN/Creatinine Ratio 11.9 10.0-20.0 Serum Glucose 126 H 74-106 mg/dL Calcium Level 8.8 8.7-10.4 mg/dL Total Bilirubin 0.3 0.2-1.0 mg/dL Aspartate Amino Transferase (AST) 36 13-40 U/L Alanine Aminotransferase (ALT) 30 7-40 U/L Alkaline Phosphatase 74 46-116 U/L Total Protein 7.2 5.7-8.2 g/dL Albumin 4.4 3.2-4.8 g/dL Lipase 56 H 12-53 U/L Time of 1ST Reevaluation: 04:45 Reevaluation 1ST: Unchanged Patient Education/Counseling: Diagnosis, Treatment Family Education/Counseling: No Family Present Departure 1 Departure Time of Disposition: 05:55 Impression: Primary Impression: Acute abdominal pain Disposition: 01 HOME / SELF CARE / HOMELESS Condition: Stable e-Prescriptions Ondansetron Odt 4MG Tab (ZOFRAN PO) 4 Mg Tb 4 MG PO Q6HP PRN, #30 TAB ODT TAB-DISSOLVE IN MOUTH, THEN SWALLOW Prov: SAMMY LAW MD 09/07/24 Famotidine (PEPCID TABLET) 20 Mg Tb 1 TAB PO BID PRN, #60 TAB 5 Refills Prov: SAMMY LAW MD 09/07/24 Discharged With: Self Critical Care Note Critical Care Time?: No Stability Stability form required: No Heart Score Heart Score: Heart Score Response (Comments) Value History N/A 0 EKG N/A 0 Age N/A 0 Risk Factors N/A 0 Troponin N/A 0 Total 0 I personally scribed for SAMMY LAW MD ([email or web address]) on 09/07/24 at 04:30. Electronically submitted by Merrick Knapp [email or web address]). SAMMY LAW MD September 07, 2024 04:30
[2024-09-07 05:09] LABS: Basophils # (auto) 0 10 ^3/uL (0-0.2); Basophils % (auto) 0.2 % (0.0-2.0); Eosinophils # (auto) 0.2 10 ^3/uL (0-0.8); Eosinophils % (auto) 1.8 % (0.0-7.0); Hematocrit 50.3 % (41.0-53.0); Hemoglobin 17.4 g/dL (13.5-17.5); Lymphocytes # (auto) 1.6 10 ^3/uL (0.4-5.4); Lymphocytes % (auto) 13.4 % (10.0-50.0); Mean Corpuscular Hemoglobin 29.5 pg (28.0-32.0); Mean Corpuscular Hgb Conc. 34.6 g/dL (32.0-36.0); Mean Corpuscular Volume 85.3 fL (80.0-100.0); Monocytes # (auto) 0.8 10 ^3/uL (0-1.3); Monocytes % (auto) 6.8 % (0.0-12.0); Neutrophils # (auto) 9.5 10 ^3/uL (1.6-8.6); Neutrophils % (auto) 77.8 % (37.0-80.0); Nucleated Red Blood Cells % 0.1 %; Platelet Count (auto) 333 10^3/uL (140-450); Red Cell Distribution Width 12.9 % (11.8-14.3); White Blood Cell 12.2 10^3/uL (4.4-10.8)
[2024-09-07 05:22] LABS: Alanine Aminotransferase 30 U/L (7-40); Albumin 4.4 g/dL (3.2-4.8); Alkaline Phosphatase 74 U/L (46-116); Anion Gap 9 (5-15); Aspartate Aminotransferase 36 U/L (13-40); BUN/Creatinine Ratio 11.9 (10.0-20.0); Blood Urea Nitrogen 13 mg/dL (9-23); Calcium 8.8 mg/dL (8.7-10.4); Carbon Dioxide 28 mmol/L (20-31); Chloride 101 mmol/L (98-107); Potassium 3.6 mmol/L (3.5-5.1); Sodium 138 mmol/L (136-145); Total Protein 7.2 g/dL (5.7-8.2)
[2024-09-07 05:23] LABS: Bilirubin, Total 0.3 mg/dL (0.2-1.0); Glucose 126 mg/dL (74-106); Lipase 56 U/L (12-53)
--- NOTE | 2024-09-07 05:26 | DVH ---
EXAM: CT Abdomen and Pelvis Without Intravenous Contrast CLINICAL INDICATION: abd pain TECHNIQUE: Axial computed tomography images of the abdomen and pelvis without intravenous contrast. This CT exam was performed using one or more of the following dose reduction techniques: automated exposure control, adjustment of the mA and/or kV according to patient size, and/or use of iterative r econstruction technique. CONTRAST: RADIATION DOSE: CTDIvol = 17.76 mGy, DLP = 1152.1 mGy-cm COMPARISON: CT CT AB PEL WO CON-NO ORAL OR IV on DOS: 08/31/24 FINDINGS: LUNG BASES: Unremarkable. No mass. No consolidation. MEDIASTINUM: Small esophageal hiatal hernia. ABDOMEN: LIVER: Hepatomegaly with fatty infiltration. GALLBLADDER AND BILE DUCTS: Unremarkable. No calcified stones. No ductal dilation. PANCREAS: Unremarkable. No ductal dilation. SPLEEN: Unremarkable. No splenomegaly. ADRENALS: Unremarkable. No mass. KIDNEYS AND URETERS: Unremarkable. No obstructing stones. No hydronephrosis. STOMACH AND BOWEL: Fecal retention in the colon consistent with constipation. No obstruction. No mucosal thickening. PELVIS: APPENDIX: No findings to suggest acute appendicitis. BLADDER: Unremarkable. No stones. REPRODUCTIVE: Unremarkable as visualized. ABDOMEN and PELVIS: INTRAPERITONEAL SPACE: Unremarkable. No free air. No significant fluid collection. BONES/JOINTS: No acute fracture. No dislocation. SOFT TISSUES: Umbilical hernia containing fat. VASCULATURE: Unremarkable. No abdominal aortic aneurysm. LYMPH NODES: Unremarkable. No enlarged lymph nodes. OTHER FINDINGS: . . IMPRESSION: 1. Small esophageal hiatal hernia. 2. Hepatomegaly with fatty infiltration. 3. Fecal retention in the colon consistent with constipation. 4. Umbilical hernia containing fat.
[2024-09-07] MEDS ORDERED: ZOFR4T PO (05:54)
[2024-09-07] MEDS ORDERED: FAMO20TA10 PO (05:54)
[2024-09-07 09:13] VITALS: BP 149/107; PULSE 75; RESP 16; TEMP 98.5; O2SAT 95
[2024-09-07] MEDS: FAMOTIDINE 20 MG TAB PO ONE (09:30)
[2024-09-07] MEDS: ONDANSETRON ODT 4 MG TAB PO ONE (09:31)
[2024-09-07] MEDS: MAALOX PLUS or MAALOX 30 ML PO ONE (09:31)
== END 2024-09-07 09:44 | disposition home or self-care (01) ==
LOC: ER 03:58
DX: R10.9 Unspecified abdominal pain (principal); F17.210 Nicotine dependence, cigarettes, uncomplicated; Z79.899 Other long term (current) drug therapy
CPT/HCPCS: 36415; 74176; 80053; 83690; 85025; 99284; Q0162

== ENCOUNTER 2024-09-11 04:47 | Emergency (ER) | payer BC ==
[~2024-09-11] VITALS: Ht 172.7 cm; Wt 94.7 kg
[~2024-09-11 04:47] MED LIST changes: +FAMO20TA10 PO; +ZOFR4T PO
--- NOTE | 2024-09-11 04:59 | ED.PDOC ---
GI ASSESSMENT HPI Comments 43 year old male presents to the ED with a chief complaint of abdominal pain onset last night (09/10/24) around 21:00. PMHx GERD, hemorrhoids, HTN, anxiety, bipolar disorder, ADHD, PTSD. Patient began experiencing epigastric pain last night around 21:00, woke up today around 00:30, pain worsen, rates pain 7/10. He has visit ED several times for same symptoms, last ED visit was 09/07/24. Has appointment with PCP on 09/14/24, has not followed up with GI specialist. Denies nausea, vomiting, diarrhea, hematemesis, blood in stool, dysuria, hematuria, fevers, chills, chest pain, shortness of breath. No other symptoms or modifying factors present at this time. Time Seen by MD: 06:14 Primary Care Provider: ALEXANDER Reviewed Notes: Medications, Allergies Allergies: Coded Allergies: NO KNOWN ALLERGIES (Unverified , 09/20/20) Home Meds Active Scripts Ondansetron Odt 4MG Tab (ZOFRAN PO) 4 Mg Tb, 4 MG PO Q6HP PRN, #30 TAB ODT TAB-DISSOLVE IN MOUTH, THEN SWALLOW Prov:SAMMY LAW MD 09/07/24 Famotidine (PEPCID TABLET) 20 Mg Tb, 1 TAB PO BID PRN, #60 TAB 5 Refills Prov:SAMMY LAW MD 09/07/24 Pantoprazole Sodium Sesquihydr (Protonix) 40 Mg Tab, 40 MG PO DAILY for 30 Days, #30 TAB Prov:SOHAM BROWN 08/26/24 Docusate Sodium (Colace) 100 Mg Cap, 1 CAP PO BID for 30 Days, #60 CAP Prov:SOHAM BROWN 08/26/24 Phenylephrine-Shark Liver Oil- (Hemorrhoidal Suppositorie 0.25-3-85.5 %) 1 Sup Sup, 1 SUP ID DAILYPRN PRN for 30 Days, #30 SUPP Prov:SOHAM BROWN 08/26/24 Reported Medications Alprazolam (Xanax) 0.25 Mg Tb, 1 TAB PO BIDPRN PRN for ANXIETY, #30 TAB 08/25/24 Lisinopril (Lisinopril) 20 Mg Tab, 20 MG PO DAILY, TAB 09/20/20 Information Source: Patient Mode of Arrival: Ambulatory Timing: Hours Duration: Since onset Prehospital treatment: None Quality: Sharp Vomitus: None Severity: Moderate Recent: None Recent Hx of: None Pain Location: Epigastric Modifying Factors: Nothing Associated sign and symptoms: Abdominal Pain Past Medical History PAST MEDICAL HISTORY: Anxiety, GERD, HTN Past Medical History (Other): hemorrhoids , bipolar disorder, ADHD Surgical History (Other): Left knee surgery arthroscopy after trauma. Right knee meniscus repair, right ankle repair Family History Family History: Reviewed,noncontributory to illness, No family hx of Cancer, No family hx of Heart fatuma, No family hx of HTN, No family hx ofKidney fatuma, No family hx of Liver fatuma, No family hx of Lung fatuma, No family hx of Stroke, Family hx of DM Social History Smoker: Cigarettes, Less Than 1 Pack/Day Alcohol: Denies ETOH Use Drugs: Denies Drug Use Lives In: Home Constitutional: denies: chills, diaphoresis, fatigue, fever, malaise, sweats, weakness, others EENTM: denies: blurred vision, double vision, ear bleeding, ear discharge, ear drainage, ear pain, ear ringing, eye pain, eye redness, hearing loss, mouth pain, mouth swelling, nasal discharge, nose bleeding, nose congestion, nose pain, photophobia, tearing, throat pain, throat swelling, voice changes, others Respiratory: denies: cough, hemoptysis, orthopnea, SOB at rest, shortness of breath, SOB with excertion, stridor, wheezing, others Cardiovascular: denies: chest pain, dizzy spells, diaphoresis, Dyspnea on exertion, edema, irregular heart beat, left arm pain, lightheadedness, palpitations, PND, syncope, others Gastrointestinal: reports: abdominal pain (epigastric); denies: abdomen distended, blood streaked bowels, constipated, diarrhea, dysphagia, difficulty swallowing, hematemesis, melena, nausea, poor appetite, poor fluid intake, rectal bleeding, rectal pain, vomiting, others Genitourinary: denies: burning, dysuria, flank pain, frequency, hematuria, inc ontinence, penile discharge, penile sore, pain, testicle pain, testicle swelling, urgency, others Neurological: denies: dizziness, fainting, headache, left sided numbness, left sided weakness, numbness, paresthesia, pre-existing deficit, right sided numbness, right sided weakness, seizure, speech problems, tingling, tremors, weakness, others Musculoskeletal: denies: back pain, gout, joint pain, joint swelling, muscle pain, muscle stiffness, neck pain, others Integumetry: denies: bruises, change in color, change in hair/nails, dryness, laceration, lesions, lumps, rash, wounds, others Allergic/Immunocompromised: denies: Difficulty Healing, Frequent Infections, Hives, Itching, others Hematologic/Lymphatic: denies: anemia, blood clots, easy bleeding, easy bruising, swollen glands, others Endocrine: denies: excessive hunger, excessive sweating, excessive thirst, excessive urination, flushing, intolerance to cold, intolerance to heat, unexplained weight gain, unexplained weight loss, others Psychiatric: denies: anxiety, bipolar disorder, depression, hopeless, panic disorder, schizophrenia, sleepless, suicidal, others All Other Systems: Reviewed and Negative Physical Exam General Appearance: No Apparent Distress, Normal HEENT: Normal ENT Inspection, Pharynx Normal, TMs Normal Neck: Full Range of Motion, Non-Tender, Normal, Normal Inspection Respiratory: Chest Non-Tender, Lungs Clear, No Accessory Muscle Use, No Respiratory Distress, Normal Breath Sounds Cardiovascular: No Edema, No JVD, No Murmur, No Gallop, Normal Peripheral Pulses, Regular Rate/Rhythm Breast Exam: Deferred Gastrointestinal: No Organomegaly, Non Tender, No Pulsatile Mass, Normal Bowel Sounds, Soft Genitalia: Deferred Pelvic: Deferred Rectal: Deferred Extremities: No calf tenderness, Normal capillary refill, Normal inspection, Normal range of motion, Non-tender, No pedal edema Musculoskeletal : Apperance: Normal Neurologic: Alert, cobbler mckay II-XII nml as Tested, No Motor Deficits, Normal Affect, Normal Mood, No Sensory Deficits Cerebellar Function: Normal Reflexes: Normal Skin: Dry, Normal Color, Warm Lymphatic: No Adenopathy Was a procedure done? Was a procedure done?: No GI differential Dx Differential Diagnosis: Bowel Obstruction, Cholangitis, Cholecystitis, Constipation, Esophagitis, Gastritis/PUD, Gastroenteritis, Pancreatitis X-Ray, Labs, Meds, VS Vital Signs Date Time Temp Pulse Resp B/P (MAP) Pulse Ox O2 Delivery O2 Flow Rate FiO2 09/11/24 07:31 65 16 98 Room Air* 0 21 09/11/24 07:31 98.2 65 16 161/98 (119) 98 98.2 09/11/24 05:10 98.0 84 18 158/108 (125) 96 98.0 Lab Test 09/11/24 06:28 09/11/24 05:12 Range/Units White Blood Count 10.0 4.4-10.8 10^3/uL Red Blood Count 5.82 4.5-5.90 10^6/uL Hemoglobin 17.2 13.5-17.5 g/dL Hematocrit 49.9 41.0-53.0 % Mean Corpuscular Volume 85.7 80.0-100.0 fL Mean Corpuscular Hemoglobin 29.6 28.0-32.0 pg Mean Corpuscular Hemoglobin Concent 34.5 32.0-36.0 g/dL Red Cell Distribution Width 12.8 11.8-14.3 % Platelet Count 342 140-450 10^3/uL Mean Platelet Volume 7.7 6.9-10.8 fL Neutrophils (%) (Auto) 74.4 37.0-80.0 % Lymphocytes (%) (Auto) 13.7 10.0-50.0 % Monocytes (%) (Auto) 8.0 0.0-12.0 % Eosinophils (%) (Auto) 2.7 0.0-7.0 % Basophils (%) (Auto) 1.2 0.0-2.0 % Neutrophils # (Auto) 7.4 1.6-8.6 10 ^3/uL Lymphocytes # (Auto) 1.4 0.4-5.4 10 ^3/uL Monocytes # (Auto) 0.8 0-1.3 10 ^3/uL Eosinophils # (Auto) 0.3 0-0.8 10 ^3/uL Basophils # (Auto) 0.1 0-0.2 10 ^3/uL Nucleated Red Blood Cells 0.0 % Sodium Level 139 136-145 mmol/L Potassium Level 4.3 3.5-5.1 mmol/L Chloride Level 104 98-107 mmol/L Carbon Dioxide Level 27 20-31 mmol/L Anion Gap 8 5-15 Blood Urea Nitrogen 12 9-23 mg/dL Creatinine 0.99 0.700-1.30 mg/dL Glomerular Filtration Rate Calc 98 >90 mL/min BUN/Creatinine Ratio 12.1 10.0-20.0 Serum Glucose 104 74-106 mg/dL Calcium Level 9.6 8.7-10.4 mg/dL Total Bilirubin 0.2 0.2-1.0 mg/dL Aspartate Amino Transferase (AST) 32 13-40 U/L Alanine Aminotransferase (ALT) 24 7-40 U/L Alkaline Phosphatase 95 46-116 U/L Total Protein 7.3 5.7-8.2 g/dL Albumin 4.4 3.2-4.8 g/dL Lipase 51 12-53 U/L Urine Color Colorless Yellow Urine Clarity Clear Clear Urine pH 7.0 5.0-9.0 Urine Specific Mears 1.006 1.001-1.035 Urine Protein Negative Negative Urine Ketones Negative Negative Urine Blood Negative Negative /uL Urine Nitrite Negative Negative Urine Bilirubin Negative Negative Urine Urobilinogen Normal Negative mg/dL Urine Leukocyte Esterase Negative Negative /uL Urine RBC <1 0 - 3 /hpf Urine Microscopic WBC 1 0-3 /HPF Urine Squamous Epithelial Cells None seen <5 /hpf Urine Bacteria None seen None Seen /hpf Urine Glucose Normal Normal mg/dL 43-year-old male presents here with abdominal pain. He was seen here on August 25 and was admitted to the hospital. I have reviewed all records from August 25. At that time he had a GI consult done and a colonoscopy. Although I am unable to f ind the colonoscopy report it seems that he was diagnosed with bleeding hemorrhoids. And constipation and a small esophageal hernia based on other reports. At this time patient is not taking anything for constipation. I have reviewed his current medications he is taking Pepcid and famotidine. He presents here with epigastric pain today but does not report burning like pain. I reviewed his past labs including his lipase that was done few days ago on the which was 56. Repeat blood work has been done today with a normal CBC CMP lipase is within normal limits today at 51. I do suspect continued constipation as he has not taken any medication for this. He is nontender on my examination. Doubt cholecystitis doubt pancreatitis. Doubt small bowel obstruction. I have advised him to take 1 capful MiraLax with 8 oz of water 3 times a day for the 1st 2 days and then MiraLax 1 capful with 8 oz of water once a day until bowel movements become regular. Patient agreeable. Patient knows he needs to buy this [id number]. Also advised him that it could be the esophageal hernia that is causing him some discomfort also. Advised him to see an outpatient surgeon. He states he had a GI appointment follow up 4 days ago but he was unable to attend as he was having significant family legal issues. Advised him he is to call the GI doctor and reschedule appointment. He is agreeable. Advised him to return if symptoms worsen or persist. Patient generally well- appearing on my examination. Time of 1ST Reevaluation: 06:44 Reevaluation 1ST: Unchanged Patient Education/Counseling: Diagnosis, Treatment, Prognosis, Need For Follow Up Family Education/Counseling: No Family Present Departure 1 Departure Time of Disposition: 07:17 Impression: Primary Impression: Constipation Qualified Codes: K59.00 - Constipation, unspecified Additional Impression: Esophageal hernia Disposition: 01 HOME / SELF CARE / HOMELESS Condition: Stable Additional Instructions: Take 1 capful of Miralax with 8 ounces of water three times a day for the first 2 days then take 1 capful of Miralax with 8 ounces of water once a day until you begin to have regular stools. Return back to the ER if symptoms worsen or persist. Discharged With: Self Critical Care Note Critical Care Time?: No Stability Stability form required: No Heart Score Heart Score: Heart Score Response (Comments) Value History N/A 0 EKG N/A 0 Age N/A 0 Risk Factors N/A 0 Troponin N/A 0 Total 0 I personally scribed for NUPUR GRACIA MD ([email or web address]) on 09/11/24 at 06:40. Electronically submitted by Radha Godfrey ([email or web address]). JOHN PIERCE September 11, 2024 04:59 NUPUR GRACIA MD September 11, 2024 06:40
[2024-09-11] MEDS ORDERED: IBUPROFEN 400 MG TAB PO ONE (05:45)
[2024-09-11 06:34] LABS: Urine Bacteria None Seen /hpf (None Seen)
[2024-09-11 06:40] LABS: Urine Blood Negative /uL (Negative); Urine Clarity Clear (Clear); Urine Color Colorless (Yellow); Urine Protein, UAD Negative (Negative); Urine Specific Gravity 1.006 (1.001-1.035); Urine Squamous Epithelial Cell None Seen /hpf (<5); Urine Urobilinogen Normal (Negative); Urine WBC 1 /HPF (0-3)
[2024-09-11 06:41] LABS: Basophils # (auto) 0.1 10 ^3/uL (0-0.2); Basophils % (auto) 1.2 % (0.0-2.0); Eosinophils # (auto) 0.3 10 ^3/uL (0-0.8); Eosinophils % (auto) 2.7 % (0.0-7.0); Hematocrit 49.9 % (41.0-53.0); Hemoglobin 17.2 g/dL (13.5-17.5); Lymphocytes # (auto) 1.4 10 ^3/uL (0.4-5.4); Lymphocytes % (auto) 13.7 % (10.0-50.0); Mean Corpuscular Hemoglobin 29.6 pg (28.0-32.0); Mean Corpuscular Hgb Conc. 34.5 g/dL (32.0-36.0); Mean Corpuscular Volume 85.7 fL (80.0-100.0); Monocytes # (auto) 0.8 10 ^3/uL (0-1.3); Neutrophils # (auto) 7.4 10 ^3/uL (1.6-8.6); Neutrophils % (auto) 74.4 % (37.0-80.0); Platelet Count (auto) 342 10^3/uL (140-450); Red Blood Cells 5.82 10^6/uL (4.5-5.90); Red Cell Distribution Width 12.8 % (11.8-14.3)
[2024-09-11 06:54] LABS: Alanine Aminotransferase 24 U/L (7-40); Albumin 4.4 g/dL (3.2-4.8); Alkaline Phosphatase 95 U/L (46-116); Anion Gap 8 (5-15); Aspartate Aminotransferase 32 U/L (13-40); BUN/Creatinine Ratio 12.1 (10.0-20.0); Blood Urea Nitrogen 12 mg/dL (9-23); Calcium 9.6 mg/dL (8.7-10.4); Carbon Dioxide 27 mmol/L (20-31); Chloride 104 mmol/L (98-107); Glucose 104 mg/dL (74-106); Lipase 51 U/L (12-53); Potassium 4.3 mmol/L (3.5-5.1); Sodium 139 mmol/L (136-145); Total Protein 7.3 g/dL (5.7-8.2)
[2024-09-11 06:55] LABS: Bilirubin, Total 0.2 mg/dL (0.2-1.0)
[2024-09-11 07:31] VITALS: BP 161/98; PULSE 65; RESP 16; TEMP 98.2; O2SAT 98
== END 2024-09-11 07:30 | disposition home or self-care (01) ==
LOC: ER 04:47
DX: K44.9 Diaphragmatic hernia without obstruction or gangrene (principal); K59.00 Constipation, unspecified; F41.9 Anxiety disorder, unspecified; I10 Essential (primary) hypertension; F31.9 Bipolar disorder, unspecified; K21.9 Gastro-esophageal reflux disease without esophagitis; F17.210 Nicotine dependence, cigarettes, uncomplicated; Z79.899 Other long term (current) drug therapy; Z98.890 Other specified postprocedural states
CPT/HCPCS: 36415; 80053; 81001; 83690; 85025